=== PATIENT | female | born 1965 | race Caucasian/White ===

== ENCOUNTER → 2016-09-02 | Outpatient (CLI) | payer OTHER ==
[2016-05-04 18:34] VITALS: BP 147/54
[~2016-09-02] MED LIST: ACYC400T PO; AMOX500C PO; AMOX875T PO; BENZ100C PO; BUDE10.2 IH; CEPH500C PO; CETI10TA16 PO; DICY10CA53 PO; ESOM20CA PO; FLUT9.9S NS; GUAI5SYR PO; HYDR-2666 PO; HYDR-971 PO; LORA10TA68 PO; LOVA20TA2 PO; MONT10TA6 PO; PHEN-318 PO; PROM12.56 PO; XOPENEX HFA15 GM IH; ZOLP10TA PO; [UNRECOGNIZED DRUG - CODE] PO
[2016-09-02 11:31] LABS: BASO % 1 % (0-3); EOS % 4 % (0-3); HEMATOCRIT 40.2 % (36.0-47.0); HEMOGLOBIN 13.4 g/dL (12.0-15.5); LYMPH # 1.6 x10^3/uL (1.0-4.8); LYMPH % 24 % (24-48); MEAN CORPUSCULAR HEMOGLOBIN 28 pg (25-35); MEAN CORPUSCULAR HGB CONC 33 g/dL (31-37); MEAN CORPUSCULAR VOLUME 85 fL (79-100); MONO % 7 % (0-9); NEUT % 64 % (31-73); PLATELET COUNT 250 x10^3/uL (140-400); RED BLOOD COUNT 4.74 x10^6/uL (3.50-5.40); RED CELL DISTRIBUTION WIDTH 13.4 % (11.5-14.5); WHITE BLOOD COUNT 6.8 x10^3/uL (4.0-11.0)
[2016-09-02 11:50] LABS: ALBUMIN 3.7 g/dL (3.4-5.0); CALCIUM 9.2 mg/dL (8.5-10.1); CREATININE 0.8 mg/dL (0.6-1.0); GFR 76.2; POTASSIUM 3.9 mmol/L (3.5-5.1); TOTAL BILIRUBIN 0.4 mg/dL (0.2-1.0); TOTAL PROTEIN 7.5 g/dL (6.4-8.2)
[2016-09-02 11:56] LABS: CHOLESTEROL/HDL RATIO 3.4
== END | disposition home or self-care (01) ==
LOC: LAB 11:06
PROVIDERS: ATTEND Physician Assistant Medical
DX: Z13.1 Encounter for screening for diabetes mellitus (principal); E78.4 Other hyperlipidemia; E55.9 Vitamin D deficiency, unspecified; R42 Dizziness and giddiness
CPT/HCPCS: 36415; 80053; 80061; 82306; 85027

== ENCOUNTER → 2016-10-08 | Outpatient (CLI) | payer MEDICARE, OTHER ==
[2016-05-04 18:34] VITALS: BP 147/54
[~2016-10-08] MED LIST changes: +BUPIVACAINE MPF 0.25% 10 ML VIAL. ONE; +IOHEXOL 180 MG/ML 10 ML VIAL. ONE; +methylPREDNISolone ACETATE 40 MG/ML VIAL. ONE; +methylPREDNISolone ACETATE 80 MG/ML VIAL. ONE
--- NOTE | 2016-10-10 08:41 | PAIN ---
DATE OF SERVICE: 10/08/2016 DIAGNOSES: Low back pain with lumbar degenerative disk disease and lumbar spondylosis. HISTORY OF PRESENT ILLNESS: The patient is a 51-year-old female who returns for followup status post lumbar epidural steroid injection without significant improvement. Her pain seemed to be more axial in the low back and ____ today for lumbar facet joint injections, right side greater than the left. The patient reports still significant pain with the motion of the low back, especially extension and ____ on the right side with radiation to the right posterior gluteus, posterior lateral thigh and lateral anterior thigh. The patient reports she is wearing a knee brace on her left leg, which helps as well. She has been working and walking a little bit better, but still using a cane to ambulate. The patient reports it is worse with standing and progresses during the day anywhere from 7 to 10 on a scale of 10. Currently, it is 7 on exam today. The patient reports no new motor or sensory deficits, no new bowel or bladder incontinence or other complaints. PHYSICAL EXAMINATION: VITAL SIGNS: The patient's blood pressure 132/96, pulse 77, respirations 18, temperature 98.0 degrees Fahrenheit, weight is 195 pounds. GENERAL: The patient is awake, alert, oriented, appropriate, very pleasant demeanor. HEENT: Head shows normocephalic, atraumatic. Extraocular movements are intact, symmetrical. Oral cavity, mucous membranes are moist and pink. Dentition is intact. NECK: Shows anterior throat is supple without palpable lymphadenopathy noted. Swallow reflex is symmetrical. Neck shows full rotation and motion of cervical spine. CHEST: Shows normal on inspection. Breath sounds are clear to auscultation bilaterally. HEART: Shows S1 and S2 clear. ABDOMEN: Soft, nontender, nondistended. No palpable organomegaly noted. No rebound or guarding demonstrated. BACK: Shows spine grossly midline. Lumbar paraspinous muscle shows some moderate tenderness to palpation in the lower lumbar distribution only worse on the right than the left, but appears roughly symmetrical without atrophy, hypertrophy, no radiation of pain. Muscle girth is firm, but diffusely tender, more again in the right than the left without significant radiation. No tenderness over the sacrum or sacroiliac regions. The patient has good rotation and motion greater than 10 degrees right and left as well as extension greater than 10 degrees, forward flexion 45 degrees, pain reported with right lateral rotation and extension only though without radiation. EXTREMITIES: Lower extremities show deep tendon reflexes 2+ in the patellar tendons, 1+ tendo calcaneus tendons. Motor exam is strong with 5/5 dorsiflexion, extension, quadriceps and hamstring flexion. Peripheral pulses are 2+ in the posterior tibial distribution. Options were discussed with the patient. The patient's old chart was reviewed, as her current medication regimen updated. Current review of systems updated today as well and we will proceed with a right-sided L4-L5 and L5-S1 facet joint injections with fluoroscopic guidance. Risks were again discussed including, but not limited to bleeding, infection, possibility of epidural hematoma and subsequent neurologic compromise, dural puncture, headaches, spinal cord and/or nerve damage, side effects of steroid medications, exposure to fluoroscopy and poor results regarding pain control. The patient understands and wishes to proceed. The patient will return to clinic in approximately 3 weeks for followup. She was counseled on return appointment, activity level and side effects to be aware of. DIAGNOSES: Lumbar spondylosis with degenerative disk disease and low back pain. PROCEDURE: Right-sided L4-L5 and L5-S1 facet joint injections with fluoroscopic guidance under sterile prep and drape using local anesthetic. Medications injected is 60 mg of Depo-Medrol total plus 2 mL of 0.25% bupivacaine and 1 mL total of Isovue for contrast. CONDITION AT DISCHARGE: Stable. The patient tolerated the procedure well, had no complications. RAZA FERGUSON MD DR: SOFI/marquis JOB#: [id number] / [id number]
== END | disposition home or self-care (01) ==
LOC: PNCL 12:50
PROVIDERS: ATTEND Anesthesiology
DX: M47.817 Spondylosis without myelopathy or radiculopathy, lumbosacral region (principal); E78.00 Pure hypercholesterolemia, unspecified; I10 Essential (primary) hypertension; Z90.49 Acquired absence of other specified parts of digestive tract; N80.9 Endometriosis, unspecified; Z90.710 Acquired absence of both cervix and uterus; Z90.721 Acquired absence of ovaries, unilateral; M19.90 Unspecified osteoarthritis, unspecified site; F41.9 Anxiety disorder, unspecified; F32.9 Major depressive disorder, single episode, unspecified; F17.200 Nicotine dependence, unspecified, uncomplicated
CPT/HCPCS: 64493; 64494; J1030; J1040; J3490

== ENCOUNTER → 2016-10-23 | Outpatient (CLI) | payer MEDICARE, OTHER ==
[2016-05-04 18:34] VITALS: BP 147/54
[~2016-10-23] MED LIST changes: -methylPREDNISolone ACETATE 40 MG/ML VIAL. ONE
--- NOTE | 2016-10-24 11:25 | PAIN ---
DATE OF SERVICE: 10/23/2016 PROGRESS NOTE DIAGNOSES: Lumbar degenerative disk disease with low back pain and lumbar spondylosis. HISTORY OF PRESENT ILLNESS: This is a 51-year-old female, who returns for followup status post right-sided L4-L5 and L5-S1 facet joint injections. The patient reports near 100% improvement in the right side low back pain. Her chief complaint is low back is hurting on the lower aspect much more now that is not when noticeable at the right side is better. The patient reports that ____ 2-4 on a scale of 10, but still significantly painful with a catching sensation though achy and sharp sensations in the left low back, worse with rotational motion, especially extension of the lumbar spine. The patient reports no new motor or sensory deficits; however, no new bowel or bladder incontinence, feels much better with her right side. PHYSICAL EXAMINATION: VITAL SIGNS: Shows blood pressure 119/78, pulse 80, respirations 18, temperature 97.6 degrees Fahrenheit, weight is 192 pounds. GENERAL: The patient is awake, alert, oriented, appropriate, very pleasant demeanor. HEENT: Head shows normocephalic, atraumatic. Extraocular movements intact and symmetrical. The patient wears eyeglasses. Oral cavity, mucous membranes are moist and pink. Dentition is intact. NECK: Shows anterior throat supple. CHEST: Shows normal on inspection. Breath sounds are clear to auscultation bilaterally. HEART: Shows S1 and S2 clear. No murmurs auscultated. ABDOMEN: Soft, nontender, nondistended. No palpable organomegaly. No rebound or guarding demonstrated is normal in appearance. BACK: Shows spine grossly midline. Lumbar paraspinous muscle shows some moderate tenderness with palpation diffusely, more on the left than the right, but present bilaterally, much more significantly tender with left low lumbar paraspinous musculature to palpation. No tenderness over the spinous processes, sacrum or sacroiliac regions. The patient shows good rotation and motion of the lumbar spine, both laterally greater than 10 degrees with some minor pain reported with left lateral rotation greater than 10 degrees with significant pain with extension and left lateral rotation, but decreased with left forward flexion. EXTREMITIES: Lower extremities show deep tendon reflexes 2+ in the patellar tendons. Motor exam is strong with 5/5 dorsiflexion, extension and equal bilaterally. Options were discussed with the patient and the patient's old chart was reviewed as her current medication regimen updated. Current review of systems updated today as well. We will proceed with a left-sided L5-S1 facet joint injection with fluoroscopic guidance today. Risks were again discussed including, but not limited to bleeding, infection, possibility of intravascular injection sequelae, spread of local anesthetic and numbness, pneumothorax, side effects of steroid medication and poor results regarding pain control. The patient understands and wishes to proceed. The patient will return to clinic in approximately 2 weeks for followup, was counseled on return appointment, activity level, and side effects to be aware of. DIAGNOSES: Lumbar spondylosis with lumbar degenerative disk disease and low back pain. PROCEDURES: Left-sided L5-S1 facet joint injection with C-arm fluoroscopic guidance. Under sterile prep and drape using local anesthetic. Medication injected 80 mg of Depo-Medrol plus 1 mL of 0.25% bupivacaine and 0.5 mL of Isovue for contrast. CONDITION AT DISCHARGE: Stable. The patient tolerated the procedure well, had no complications. RAZA FERGUSON MD DR: SOFI/marquis JOB#: [id number] / [id number]
== END | disposition home or self-care (01) ==
LOC: PNCL 13:16
PROVIDERS: ATTEND Anesthesiology
DX: M51.36 Other intervertebral disc degeneration, lumbar region (principal); M47.816 Spondylosis without myelopathy or radiculopathy, lumbar region; I10 Essential (primary) hypertension; M19.90 Unspecified osteoarthritis, unspecified site; F41.9 Anxiety disorder, unspecified; F32.9 Major depressive disorder, single episode, unspecified; F17.200 Nicotine dependence, unspecified, uncomplicated; Z90.49 Acquired absence of other specified parts of digestive tract; Z90.710 Acquired absence of both cervix and uterus
CPT/HCPCS: 64493; J1040; J3490

== ENCOUNTER 2016-12-02 12:06 | Emergency (ER) | payer MEDICARE, OTHER ==
[~2016-12-02] VITALS: Ht 162.6 cm; Wt 87.5 kg
[~2016-12-02 12:06] MED LIST changes: -BUPIVACAINE MPF 0.25% 10 ML VIAL. ONE; -IOHEXOL 180 MG/ML 10 ML VIAL. ONE; -methylPREDNISolone ACETATE 80 MG/ML VIAL. ONE
[2016-12-02 12:23] VITALS: BP 120/76
[2016-12-02] MEDS ORDERED: ACETAMINOPHEN 325 MG TABLET. PO PRN (14:30)
[2016-12-02] MEDS ORDERED: LIDO:MAALOX:DONNATAL 1:1:1 15 ML SINGLE DOSE SWSW ONE (14:30)
[2016-12-02] MEDS ORDERED: FENTANYL PF 100 MCG/2 ML VIAL. IV ONE (14:30)
[2016-12-02] MEDS ORDERED: IV NORMAL SALINE 1000ML BAG 1,000 ML IV ONE (14:30)
[2016-12-02] MEDS ORDERED: NITROGLYCERIN SUBLINGUAL 0.4 MG BOTTLE OF 25. SL PRN (14:30)
--- NOTE | 2016-12-02 14:51 | RAD ---
Exam: PA and lateral chest radiograph History: Status post esophageal dilatation, rule out free air, trouble swallowing. Comparison: 08/15/2015. Findings: Cardiomediastinal silhouette is within normal limits for size. Bilateral lung lopez are free of focal infiltrate. No pleural effusion is seen. Cholecystectomy clips are present. No pneumomediastinum is identified. No pneumoperitoneum is seen. Impression: No acute cardiopulmonary process.
--- NOTE | 2016-12-02 15:11 | PHYS DOC ---
Past Medical History Past Medical History: Other Additional Past Medical Histor: LUMBAR DJD, RIGHT HIP PAIN,OSTEOARTHRITIS, BURSITIS,TROUBLE SWALLOWING Past Surgical History: Other Additional Past Surgical Histo: ENDOMETRIOSIS,EGD W/ DILATION Additional Information: 1 PACK CAN LAST ME A MONTH Alcohol Use: Occasionally Drug Use: None Adult General Chief Complaint Chief Complaint: GI PROBLEM HPI HPI Patient is a 51 year old female who presents with throat pain. Patient reports she had esophageal dilatation done yesterday by Dr. Martin at the [facility]. Since then she has been having pain on the back. She has been able to swallow fluids, but has enough pain that she is unable to eat any food. She has been able to swallow her meds. No fever. No chest pain. No other acute complaints. She says she called and spoke to the doctor who told her to go to the Emergency Department. Review of Systems Review of Systems Constitutional: Denies fever or chills Eyes: Denies change in visual acuity or eye pain HENT: Throat pain Respiratory: Denies cough or shortness of breath Cardiovascular: Denies chest pain GI: Denies abdominal pain, nausea, vomiting, bloody stools or diarrhea : Denies dysuria or hematuria Musculoskeletal: Denies back pain or joint pain Integument: Denies rash or skin lesions Neurologic: Denies headache, focal weakness or sensory changes Current Medications Current Medications Current Medications Medications (Trade) Dose Ordered Sig/Kurt Start Time Stop Time Status Last Admin Dose Admin Acetaminophen (Tylenol) 650 mg PRN Q4HRS PRN 12/02/16 14:30 12/03/16 14:29 UNV Fentanyl Citrate (Fentanyl 2ml Vial) 75 mcg 1X ONCE 12/02/16 15:30 12/02/16 15:31 DC 12/02/16 15:14 75 MCG Fentanyl Citrate 75 mcg 75 mcg 1X ONCE 12/02/16 14:30 12/02/16 15:09 DC Multi-Ingredient Mouthwash/Gargle (Gi Cocktail Single Dose) 15 ml 1X ONCE 12/02/16 14:30 12/02/16 14:31 DC 12/02/16 15:14 15 ML Nitroglycerin (Nitrostat) 0.4 mg PRN Q5MIN PRN 12/02/16 14:30 12/03/16 14:29 UNV Sodium Chloride (Iv Sodium Chloride 0.9% 1000ml Bag) 1,000 ml @ 1,000 mls/hr 1X ONCE 12/02/16 14:30 12/02/16 15:09 DC Allergies Allergies Allergies Coded Allergies Type Severity Reaction Last Updated Verified morphine Allergy Severe Anaphylaxis 08/17/15 Yes tramadol HCl Allergy Severe Anaphylaxis 08/17/15 Yes codeine Allergy Intermediate Unknown 08/17/15 Yes hydromorphone HCl Allergy Intermediate vomit 08/17/15 Yes epinephrine Adverse Reaction Intermediate Unknown 08/17/15 Yes lorazepam Adverse Reaction Intermediate nervousness 03/10/16 Yes metoclopramide HCl Adverse Reaction Intermediate vomit 08/17/15 Yes ondansetron HCl Adverse Reaction Intermediate Unknown 08/17/15 Yes Uncoded Allergies Type Severity Reaction Last Updated Verified compaz Adverse Reaction Intermediate nervousness 03/10/16 Physical Exam Physical Exam Constitutional: Well developed, well nourished, no acute distress, non-toxic appearance HENT: Normocephalic, atraumatic, bilateral external ears normal; oropharynx visually unremarkable without erythema, lesion, exudate; exterior neck unremarkable, no deformity or skin lesion, minimal anterior TTP Eyes: EOMI, conjunctiva normal, no discharge Neck: Normal range of motion, no stridor Cardiovascular: Heart rate normal, regular rhythm, no murmur Lungs & Thorax: Bilateral breath sounds clear to auscultation Abdomen: Bowel sounds normal, soft, non-distended, no TTP Skin: Warm, dry, no erythema, no rash Extremities: No obvious deformity, no edema Neurologic: Alert and oriented X 3, no gross deficits noted Current Patient Data Vital Signs Vital Signs Date Time Temp Pulse Resp B/P Pulse Ox O2 Delivery O2 Flow Rate FiO2 12/02/16 15:14 18 12/02/16 12:23 98.6 77 120/76 97 Room Air 98.6 EKG EKG [] Radiology/Procedures Radiology/Procedures CXR: Impression: No acute cardiopulmonary process. Course & Med Decision Making Course & Med Decision Making Pertinent Labs and Imaging studies reviewed. (See chart for details) Patient is 51 year old female who presents with throat pain s/p esophageal dilatation yesterday. No concerning findings on physical exam, low suspicion for serious complication such as esophageal perforation. I spoke with Dr. Martin after seeing patient: will obtain CXR (to look for free air), give IV fluid bolus, and give GI cocktail. If CXR normal then ok to discharge home. Pain medication also ordered. Imaging results as above. Discussed results with patient. Nursing staff unable to obtain IV on first attempt; patient asks not to be stuck again so will change pain meds to IM with patient in agreement. Will discharge with instructions for follow up and return precautions. Dragon Disclaimer Dragon Disclaimer This electronic medical record was generated, in whole or in part, using a voice recognition dictation system. Departure Departure Impression: Primary Impression: Sore throat Additional Impression: Esophageal dilatation Disposition: 01 HOME, SELF-CARE Condition: STABLE Referrals: HENRY MORA PA-C (PCP) BLANCHE MARTIN MD Patient Instructions: Esophageal Dilatation Additional Instructions: Thank you for allowing us to provide care today in the Emergency Department. Continue to take her home pain medication. You may also try some Chloraseptic spray. Follow the directions on the label. Schedule a follow up appointment with your GI doctor. Return promptly to the Emergency Department if you develop any new or concerning symptoms. Problem Qualifiers BRICE MARTINES MD Dec 02, 2016 15:11
[2016-12-02] MEDS ORDERED: FENTANYL PF 100 MCG/2 ML VIAL. IM ONE (15:30)
== END 2016-12-02 15:25 | disposition home or self-care (01) ==
LOC: ER 12:06
DX: J02.9 Acute pharyngitis, unspecified (principal); K22.8 Other specified diseases of esophagus; M19.90 Unspecified osteoarthritis, unspecified site; F17.200 Nicotine dependence, unspecified, uncomplicated; Z88.6 Allergy status to analgesic agent; Z88.5 Allergy status to narcotic agent; Z88.8 Allergy status to other drugs, medicaments and biological substances
CPT/HCPCS: 71020; 96372; 99284; J3010

== ENCOUNTER 2017-05-30 16:37 | Inpatient (IN) | payer MEDICARE, OTHER ==
[~2017-05-30] VITALS: Ht 162.6 cm; Wt 89.8 kg
[~2017-05-30 16:37] MED LIST changes: -HYDR-2666 PO; +HYDR-2758 PO
--- NOTE | 2017-05-30 17:33 | PHYS DOC ---
Past Medical History Past Medical History: Other Additional Past Medical Histor: LUMBAR DJD, RIGHT HIP PAIN,OSTEOARTHRITIS, BURSITIS,TROUBLE SWALLOWING Past Surgical History: Other Additional Past Surgical Histo: ENDOMETRIOSIS,EGD W/ DILATION Additional Information: NOSMOKING FOR ONE MONTH NOW Alcohol Use: Occasionally Drug Use: None Adult General Chief Complaint Chief Complaint: Palpitations HPI HPI Patient is a 51 year old female who presents with is. She states it started last night is been constant in nature. She denies any nauseous, shortness of breath fevers chills or chest pain. She states nothing makes it better or worse. She states it just makes her feel extremely tired. She states she's had a stress test that was completely normal by Dr. Stevens approximately 2 years ago. She states she is a former drug abuser and a week ago she used a line of Coke after being pressured by her brother. Review of Systems Review of Systems Constitutional: Denies fever or chills [] Eyes: Denies change in visual acuity, redness, or eye pain [] HENT: Denies nasal congestion or sore throat [] Respiratory: Denies cough or shortness of breath [] Cardiovascular: No additional information not addressed in HPI [] GI: Denies abdominal pain, nausea, vomiting, bloody stools or diarrhea [] : Denies dysuria or hematuria [] Musculoskeletal: Denies back pain or joint pain [] Integument: Denies rash or skin lesions [] Neurologic: Denies headache, focal weakness or sensory changes [] Endocrine: Denies polyuria or polydipsia [] Current Medications Current Medications Current Medications Medications (Trade) Dose Ordered Sig/Kurt Start Time Stop Time Status Last Admin Dose Admin Fentanyl Citrate (Fentanyl 2ml Vial) 50 mcg PRN Q15MIN PRN 05/30/17 18:45 05/31/17 18:44 05/30/17 19:46 50 MCG Allergies Allergies Allergies Coded Allergies Type Severity Reaction Last Updated Verified morphine Allergy Severe Anaphylaxis 08/17/15 Yes tramadol HCl Allergy Severe Anaphylaxis 08/17/15 Yes codeine Allergy Intermediate Unknown 08/17/15 Yes hydromorphone HCl Allergy Intermediate vomit 08/17/15 Yes epinephrine Adverse Reaction Intermediate Unknown 08/17/15 Yes lorazepam Adverse Reaction Intermediate nervousness 03/10/16 Yes metoclopramide HCl Adverse Reaction Intermediate vomit 08/17/15 Yes ondansetron HCl Adverse Reaction Intermediate Unknown 08/17/15 Yes prochlorperazine Adverse Reaction Intermediate NERVOUS 05/30/17 No Physical Exam Physical Exam Constitutional: Well developed, well nourished, no acute distress, non-toxic appearance. [] HENT: Normocephalic, atraumatic, bilateral external ears normal, oropharynx moist, no oral exudates, nose normal. [] Eyes: PERRLA, EOMI, conjunctiva normal, no discharge. [] Neck: Normal range of motion, no tenderness, supple, no stridor. [] Cardiovascular:Heart rate regular rhythm, no murmur [] Lungs & Thorax: Bilateral breath sounds clear to auscultation [] Abdomen: Bowel sounds normal, soft, no tenderness, no masses, no pulsatile masses. [] Skin: Warm, dry, no erythema, no rash. [] Back: No tenderness, no CVA tenderness. [] Extremities: No tenderness, no cyanosis, no clubbing, ROM intact, no edema. [] Neurologic: Alert and oriented X 3, normal motor function, normal sensory function, no focal deficits noted. [] Psychologic: Affect normal, judgement normal, mood normal. [] Current Patient Data Vital Signs Vital Signs Date Time Temp Pulse Resp B/P (MAP) Pulse Ox O2 Delivery O2 Flow Rate FiO2 05/30/17 18:43 76 18 157/85 (109) 98 Room Air 05/30/17 16:54 97.4 97.4 Lab Values Laboratory Tests Test 05/30/17 17:15 05/30/17 17:40 05/30/17 17:42 Sodium Level 138 mmol/L (136-145) Potassium Level 3.8 mmol/L (3.5-5.1) Chloride Level 103 mmol/L (98-107) Carbon Dioxide Level 27 mmol/L (21-32) Anion Gap 8 (6-14) Blood Urea Nitrogen 13 mg/dL (7-20) Creatinine 0.7 mg/dL (0.6-1.0) Estimated GFR (Cockcroft-Gault) 88.9 Glucose Level 99 mg/dL (70-99) Calcium Level 8.9 mg/dL (8.5-10.1) Magnesium Level 2.4 mg/dL (1.8-2.4) Total Bilirubin 0.5 mg/dL (0.2-1.0) Direct Bilirubin 0.1 mg/dL (0.0-0.2) Aspartate Amino Transferase (AST) 24 U/L (15-37) Alanine Aminotransferase (ALT) 42 U/L (14-59) Alkaline Phosphatase 90 U/L (46-116) Creatine Kinase 107 U/L (26-192) Creatine Kinase MB (Mass) 0.8 ng/mL (0.0-3.6) Creatine Kinase MB Relative Index 0.7 % (0-4) Troponin I Quantitative < 0.017 ng/mL (0.000-0.055) SM-Xoq-M-Type Natriuretic Peptide 72 pg/mL (0-124) Total Protein 7.7 g/dL (6.4-8.2) Albumin 3.7 g/dL (3.4-5.0) Lipase 141 U/L (73-393) Thyroid Stimulating Hormone (TSH) 1.523 uIU/mL (0.358-3.74) Serum Test, Qualitative Negative (NEG) White Blood Count 13.1 x10^3/uL (4.0-11.0) H Red Blood Count 4.47 x10^6/uL (3.50-5.40) Hemoglobin 12.6 g/dL (12.0-15.5) Hematocrit 38.5 % (36.0-47.0) Mean Corpuscular Volume 86 fL (79-100) Mean Corpuscular Hemoglobin 28 pg (25-35) Mean Corpuscular Hemoglobin Concent 33 g/dL (31-37) Red Cell Distribution Width 14.6 % (11.5-14.5) H Platelet Count 286 x10^3/uL (140-400) Neutrophils (%) (Auto) 78 % (31-73) H Lymphocytes (%) (Auto) 14 % (24-48) L Monocytes (%) (Auto) 6 % (0-9) Eosinophils (%) (Auto) 2 % (0-3) Basophils (%) (Auto) 1 % (0-3) Neutrophils # (Auto) 10.2 x10^3uL (1.8-7.7) H Lymphocytes # (Auto) 1.8 x10^3/uL (1.0-4.8) Monocytes # (Auto) 0.8 x10^3/uL (0.0-1.1) Eosinophils # (Auto) 0.2 x10^3/uL (0.0-0.7) Basophils # (Auto) 0.1 x10^3/uL (0.0-0.2) Prothrombin Time 13.2 SEC (11.7-14.0) Prothrombin Time INR 1.1 (0.8-1.1) Urine Collection Type Unknown Urine Color Yellow Urine Clarity Clear Urine pH 5.5 Urine Specific [place] >=1.030 Urine Protein Negative mg/dL (NEG-TRACE) Urine Glucose (UA) Negative mg/dL (NEG) Urine Ketones (Stick) Negative mg/dL (NEG) Urine Blood Negative (NEG) Urine Nitrite Negative (NEG) Urine Bilirubin Negative (NEG) Urine Urobilinogen Dipstick 0.2 mg/dL (0.2 mg/dL) Urine Leukocyte Esterase Negative (NEG) Urine RBC 0 /HPF (0-2) Urine WBC 0 /HPF (0-4) Urine Bacteria 0 /HPF (0-FEW) Urine Mucus Mod /LPF Urine Opiates Screen Pos (NEG) Urine Methadone Screen Neg (NEG) Urine Barbiturates Neg (NEG) Urine Phencyclidine Screen Neg (NEG) Urine Amphetamine/Methamphetamine Neg (NEG) Urine Benzodiazepines Screen Neg (NEG) Urine Cocaine Screen Pos (NEG) Urine Cannabinoids Screen Neg (NEG) Urine Ethyl Alcohol Neg (NEG) Laboratory Tests 05/30/17 17:40 Laboratory Tests 05/30/17 17:15 EKG EKG EKG shows sinus rhythm with rate of [address] elevations, T-wave inversion in lead 3, incomplete right bundle branch morphology noted, normal axis, QTC 446 pulsatile sinus, as interpreted by me. Radiology/Procedures Radiology/Procedures One view chest x-ray did not show any focal salt elevations, bony abnormalities , or pneumothorax, as interpreted by me. Impressions: Palpitations Chronic pain Cocaine abuse Course & Med Decision Making Course & Med Decision Making Pertinent Labs and Imaging studies reviewed. (See chart for details) Labs show any acute abnormalities. She is having PVCs on the monitor which are symptomatic in nature. Spoke with Dr. Stevens for consultation and admitting the patient to her primary Dr. Whitney. Patient's in stable condition at this time. Dragon Disclaimer Dragon Disclaimer This electronic medical record was generated, in whole or in part, using a voice recognition dictation system. Departure Departure Impression: Primary Impression: Palpitations Disposition: ADMITTED INPATIENT Admitting Physician: Mark Francis Condition: STABLE Referrals: HENRY MORA PA-C (PCP) SONIA OWENS MD May 30, 2017 17:33
--- NOTE | 2017-05-30 17:34 | EKG ---
[facility] [address] [place] [address] Test Date: 2017-05-30 Test Time: 16:44:55 Pat Name: FRENCH ORTEGA Department: Room: Gender: F Materials Clerk: : 1965 Requested By: SONIA OWENS Order Number: [id number] Reading MD: Yosvany Valerio Measurements Intervals [place] Rate: 79 P: 24 ID: [id number] QRS: 1 QRSD: 94 T: 17 QT: 388 QTc: 446 Interpretive Statements SINUS RHYTHM INCOMPLETE RIGHT BUNDLE BRANCH BLOCK NONSPECIFIC ST-T WAVE CHANGES. RI6.01 Unconfirmed report Compared to ECG 04/08/2016 09:01:47 Incomplete right bundle-branch block now present Electronically Signed On 06-17-2017 13:21:44 CDT by Yosvany Valerio
[2017-05-30 17:50] LABS: BILIRUBIN,URINE NEGATIVE (NEG); GLUCOSE,URINE NEGATIVE (NEG); NITRITE,URINE NEGATIVE (NEG); PH,URINE 5.5; PROTEIN,URINE NEGATIVE (NEG-TRACE); UROBILINOGEN,URINE 0.2 mg/dL (0.2 mg/dL)
[2017-05-30 17:56] LABS: BARBITURATES NEG (NEG); BENZODIAZEPINES NEG (NEG); CANNABINOIDS NEG (NEG); COCAINE POS (NEG); METHADONE NEG (NEG); OPIATES POS (NEG); PHENCYCLIDINE NEG (NEG)
[2017-05-30 18:14] LABS: BACTERIA,URINE 0 /HPF (0-FEW); RBC,URINE 0 /HPF (0-2); WBC,URINE 0 /HPF (0-4)
[2017-05-30 18:19] LABS: BASO # 0.1 x10^3/uL (0.0-0.2); BASO % 1 % (0-3); EOS % 2 % (0-3); HEMATOCRIT 38.5 % (36.0-47.0); HEMOGLOBIN 12.6 g/dL (12.0-15.5); LYMPH # 1.8 x10^3/uL (1.0-4.8); LYMPH % 14 % (24-48); MEAN CORPUSCULAR HEMOGLOBIN 28 pg (25-35); MEAN CORPUSCULAR HGB CONC 33 g/dL (31-37); MEAN CORPUSCULAR VOLUME 86 fL (79-100); MONO % 6 % (0-9); NEUT % 78 % (31-73); PLATELET COUNT 286 x10^3/uL (140-400); RED BLOOD COUNT 4.47 x10^6/uL (3.50-5.40); RED CELL DISTRIBUTION WIDTH 14.6 % (11.5-14.5); WHITE BLOOD COUNT 13.1 x10^3/uL (4.0-11.0)
[2017-05-30 18:31] LABS: INR 1.1 (0.8-1.1); PROTHROMBIN TIME PATIENT 13.2 SEC (11.7-14.0)
[2017-05-30] MEDS: fentaNYL PF VIAL 100 MCG/2 ML VIAL IV PRN ×3 (19:06→21:38)
[2017-05-30] MEDS ORDERED: PROMETHAZINE 25 MG in IV NORMAL SALINE 50ML 50 ML IV ONE (19:30)
[2017-05-30 19:44] LABS: CALCIUM 8.9 mg/dL (8.5-10.1); CREATININE 0.7 mg/dL (0.6-1.0); GFR 88.9; POTASSIUM 3.8 mmol/L (3.5-5.1)
[2017-05-30 19:47] LABS: ALBUMIN 3.7 g/dL (3.4-5.0); DIRECT BILIRUBIN 0.1 mg/dL (0.0-0.2); MAGNESIUM 2.4 mg/dL (1.8-2.4); TOTAL BILIRUBIN 0.5 mg/dL (0.2-1.0); TOTAL PROTEIN 7.7 g/dL (6.4-8.2)
[2017-05-30 19:51] LABS: NEG OBC SER NEG; POS OBC SER POS
[2017-05-30 19:54] LABS: CKMB MASS 0.8 ng/mL (0.0-3.6)
[2017-05-30] MEDS ORDERED: fentaNYL PF VIAL 100 MCG/2 ML VIAL IV PRN (20:00)
[2017-05-30 20:22] VITALS: BP 138/76
[2017-05-30] MEDS ORDERED: VALA500T PO (20:31)
[2017-05-30] MEDS ORDERED: MONT10TA9 PO (20:34)
[2017-05-30] MEDS ORDERED: DICY10CA3 PO (20:34)
[2017-05-30] MEDS ORDERED: ESOM40CA47 PO (20:34)
[2017-05-30] MEDS ORDERED: PROM12.56 (20:34)
[2017-05-30] MEDS ORDERED: LOSA25TA4 PO (20:34)
[2017-05-30] MEDS ORDERED: OLOP2.5D5 OU (20:34)
[2017-05-30] MEDS ORDERED: FLUT16SP NS (20:34)
[2017-05-30 23:11] VITALS: BP 113/63
[2017-05-31] MEDS: fentaNYL PF VIAL 100 MCG/2 ML VIAL IV PRN ×3 (01:22→07:57)
[2017-05-31 03:10] VITALS: BP 105/59
[2017-05-31 04:56] LABS: BASO % 1 % (0-3); EOS % 2 % (0-3); HEMATOCRIT 36.4 % (36.0-47.0); HEMOGLOBIN 12.6 g/dL (12.0-15.5); LYMPH # 1.9 x10^3/uL (1.0-4.8); LYMPH % 20 % (24-48); MEAN CORPUSCULAR HEMOGLOBIN 29 pg (25-35); MEAN CORPUSCULAR HGB CONC 35 g/dL (31-37); MEAN CORPUSCULAR VOLUME 85 fL (79-100); MONO % 8 % (0-9); NEUT % 70 % (31-73); PLATELET COUNT 261 x10^3/uL (140-400); RED BLOOD COUNT 4.31 x10^6/uL (3.50-5.40); RED CELL DISTRIBUTION WIDTH 14.3 % (11.5-14.5); WHITE BLOOD COUNT 9.3 x10^3/uL (4.0-11.0)
[2017-05-31 05:03] LABS: CALCIUM 8.8 mg/dL (8.5-10.1); CREATININE 0.7 mg/dL (0.6-1.0); GFR 88.9
[2017-05-31 05:12] LABS: POTASSIUM 4.5 mmol/L (3.5-5.1)
[2017-05-31 07:00] VITALS: BP 124/69
[2017-05-31] MEDS ORDERED: DICYCLOMINE HCL 10 MG CAPSULE PO PRN (08:15)
[2017-05-31] MEDS: MONTELUKAST SODIUM 10 MG TABLET. PO SCH (08:45)
[2017-05-31] MEDS: valACYclovir 500 MG TABLET. PO SCH (08:45)
[2017-05-31] MEDS: CETIRIZINE HCL 10 MG TABLET. PO SCH (08:45)
[2017-05-31] MEDS: PANTOPRAZOLE 40 MG TABLET.DR. PO SCH ×2 (08:46→16:56)
--- NOTE | 2017-05-31 08:47 | RAD ---
Portable AP chest. History: Palpitations, irregular heartbeat AP view was taken of the chest. Lungs are clear. Heart is normal in size. There is no pleural effusion. Impression: 1. No acute chest disease.
[2017-05-31] MEDS ORDERED: LOSARTAN POTASSIUM 25 MG TABLET. PO SCH (09:00)
[2017-05-31] MEDS: KETOTIFEN FUMARATE 0.025% OPHTH SOLUTION BOTTLE. OU SCH (10:57)
[2017-05-31] MEDS: FLUTICASONE 50MCG/NASAL SPRAY 16GM BOTTLE. NS SCH (10:57)
[2017-05-31 11:00] VITALS: BP 117/65
--- NOTE | 2017-05-31 11:53 | PDOC ---
Provider Note Provider Note Consult dictated Symptomatic PVCs Probably due to cocaine abuse Obtain echocardiogram tomorrow to evaluate left ventricular function Refuses an MPI Consider anxiolytics for symptomatic PVCs. APOLLO JARA MD May 31, 2017 11:53
--- NOTE | 2017-05-31 14:16 | PDOC1 ---
History and Physical Date of Admission Date of Admission 05/30/17 Identification/Chief Complaint Chief Complaint palpitation Problems: Source Source: Patient History of Present Illness History of Present Illness Patient is a 51 year old female who presents with palpitation and dizziness. She states it started last night is been constant in nature. She denies any nauseous, shortness of breath fevers chills or chest pain. She states nothing makes it better or worse. She states it just makes her feel extremely tired . She states she's had a stress test that was completely normal by Dr. Stevens approximately 2 years ago. She states she is a former drug abuser and recently she used a line of Coke after being pressured by her brother. she takes hydrocodone for chronic back pain Past Medical History Cardiovascular: HTN, Hyperlipidemia, Other (palpitation) Pulmonary: Other (smoker ) CENTRAL NERVOUS SYSTEM: Other GI: GERD, GI bleed, Irritable bowel disease, Other (esophgeal stenisis and dilation, gastritis, esophagitis) Heme/Onc: No pertinent hx Hepatobiliary: No pertinent hx Psych: Anxiety, Depression Rheumatologic: Fibromyalgia, Other (DJD and low back pain) Infectious disease: No pertinent hx ENT: Allergic Rhinitis Renal/: UTI Endocrine: No pertinent hx, Other Dermatology: No pertinent hx Past Surgical History Past Surgical History: Cholecystectomy, Hysterectomy Family History Family History: Coronary Artery Disease, Hypertension Social History Smoke: 1 pack per day ALCOHOL: rare Drugs: Cocaine, Other (quit but tried again recently) Current Medications Current Medications Current Medications Medications (Trade) Dose Ordered Sig/Kurt Start Time Stop Time Status Last Admin Dose Admin Cetirizine HCl (ZyrTEC) 10 mg DAILY 05/31/17 09:00 05/31/17 08:45 10 MG Dicyclomine HCl (Bentyl) 10 mg PRN DAILY PRN 05/31/17 08:15 Fentanyl Citrate (Fentanyl 2ml Vial) 50 mcg PRN Q2HR PRN 05/30/17 20:00 05/31/17 19:59 05/31/17 10:57 50 MCG Fluticasone Propionate (Flonase) 2 spray DAILY 05/31/17 09:00 05/31/17 10:57 2 SPRAY Ketotifen Fumarate (Zaditor) 1 drop DAILY 05/31/17 09:00 05/31/17 10:57 1 DROP Losartan Potassium (Cozaar) 25 mg DAILY 05/31/17 09:00 05/31/17 12:09 DC 05/31/17 08:46 25 MG Metoprolol Tartrate (Lopressor) 12.5 mg [id number] 05/31/17 18:00 Montelukast Sodium (Singulair) 10 mg DAILY 05/31/17 09:00 05/31/17 08:45 10 MG Pantoprazole Sodium (Protonix) 40 mg BIDAC 05/31/17 09:00 05/31/17 08:46 40 MG Promethazine HCl 25 mg/Sodium Chloride 51 ml @ 101 mls/hr 1X ONCE 05/30/17 19:30 05/30/17 20:00 DC 05/30/17 19:47 101 MLS/HR Valacyclovir HCl (Valtrex) 500 mg DAILY 05/31/17 09:00 05/31/17 08:45 500 MG Allergies Allergies Allergies Coded Allergies Type Severity Reaction Last Updated Verified morphine Allergy Severe Anaphylaxis 08/17/15 Yes tramadol HCl Allergy Severe Anaphylaxis 08/17/15 Yes codeine Allergy Intermediate Unknown 08/17/15 Yes hydromorphone HCl Allergy Intermediate vomit 08/17/15 Yes epinephrine Adverse Reaction Intermediate Unknown 08/17/15 Yes lorazepam Adverse Reaction Intermediate nervousness 03/10/16 Yes metoclopramide HCl Adverse Reaction Intermediate vomit 08/17/15 Yes ondansetron HCl Adverse Reaction Intermediate Unknown 08/17/15 Yes prochlorperazine Adverse Reaction Intermediate NERVOUS 05/30/17 No ROS Review of System CONSTITUTIONAL: No fever or chills EYES: No recent changes SKIN: No rash or itching CARDIOVASCULAR: No chest pain, + palpitations and feels dizzy RESPIRATORY: No SOB or cough GASTROINTESTINAL: + nausea,No vomiting or abdominal pain NEUROLOGICAL: mild headaches and weakness in general ENDOCRINE: No cold or heat intolerance GENITOURINARY: No urgency or frequency of urination MUSCULOSKELETAL: chronic back pain and joint pain LYMPHATICS: No enlarged lymph nodes PSYCHIATRIC: + anxiety and depression Physical Exam Physical Exam GEN.: No apparent distress. Alert and oriented. HEENT: Head is normocephalic, atraumatic NECK: Supple. LUNGS: Clear to auscultation. HEART: RRR, S1, S2 present. Peripheral pulses intact ABDOMEN: Soft, nontender. Positive bowel sounds. EXTREMITIES: Without any cyanosis. NEUROLOGIC: Normal speech, normal tone PSYCHIATRIC: Normal affect, SKIN: No ulcerations Vitals Vitals Vital Signs Date Time Temp Pulse Resp B/P (MAP) Pulse Ox O2 Delivery O2 Flow Rate FiO2 05/31/17 08:46 77 105/59 05/31/17 08:00 Room Air 05/31/17 07:00 98.6 20 97 98.6 Labs Labs Laboratory Tests Test 05/30/17 17:15 05/30/17 17:40 05/30/17 17:42 05/31/17 03:50 Sodium Level 138 mmol/L (136-145) 139 mmol/L (136-145) Potassium Level 3.8 mmol/L (3.5-5.1) 4.5 mmol/L (3.5-5.1) Chloride Level 103 mmol/L (98-107) 105 mmol/L (98-107) Carbon Dioxide Level 27 mmol/L (21-32) 28 mmol/L (21-32) Anion Gap 8 (6-14) 6 (6-14) Blood Urea Nitrogen 13 mg/dL (7-20) 18 mg/dL (7-20) Creatinine 0.7 mg/dL (0.6-1.0) 0.7 mg/dL (0.6-1.0) Estimated GFR (Cockcroft-Gault) 88.9 88.9 Glucose Level 99 mg/dL (70-99) 93 mg/dL (70-99) Calcium Level 8.9 mg/dL (8.5-10.1) 8.8 mg/dL (8.5-10.1) Magnesium Level 2.4 mg/dL (1.8-2.4) Total Bilirubin 0.5 mg/dL (0.2-1.0) Direct Bilirubin 0.1 mg/dL (0.0-0.2) Aspartate Amino Transf (AST/SGOT) 24 U/L (15-37) Alanine Aminotransferase (ALT/SGPT) 42 U/L (14-59) Alkaline Phosphatase 90 U/L (46-116) Creatine Kinase 107 U/L (26-192) Creatine Kinase MB (Mass) 0.8 ng/mL (0.0-3.6) Creatine Kinase MB Relative Index 0.7 % (0-4) Troponin I Quantitative < 0.017 ng/mL (0.000-0.055) < 0.017 ng/mL (0.000-0.055) KI-Ozf-C-Type Natriuretic Peptide 72 pg/mL (0-124) Total Protein 7.7 g/dL (6.4-8.2) Albumin 3.7 g/dL (3.4-5.0) Lipase 141 U/L (73-393) Thyroid Stimulating Hormone (TSH) 1.523 uIU/mL (0.358-3.74) Serum Test, Qualitative Negative (NEG) White Blood Count 13.1 x10^3/uL (4.0-11.0) 9.3 x10^3/uL (4.0-11.0) Red Blood Count 4.47 x10^6/uL (3.50-5.40) 4.31 x10^6/uL (3.50-5.40) Hemoglobin 12.6 g/dL (12.0-15.5) 12.6 g/dL (12.0-15.5) Hematocrit 38.5 % (36.0-47.0) 36.4 % (36.0-47.0) Mean Corpuscular Volume 86 fL (79-100) 85 fL (79-100) Mean Corpuscular Hemoglobin 28 pg (25-35) 29 pg (25-35) Mean Corpuscular Hemoglobin Concent 33 g/dL (31-37) 35 g/dL (31-37) Red Cell Distribution Width 14.6 % (11.5-14.5) 14.3 % (11.5-14.5) Platelet Count 286 x10^3/uL (140-400) 261 x10^3/uL (140-400) Neutrophils (%) (Auto) 78 % (31-73) 70 % (31-73) Lymphocytes (%) (Auto) 14 % (24-48) 20 % (24-48) Monocytes (%) (Auto) 6 % (0-9) 8 % (0-9) Eosinophils (%) (Auto) 2 % (0-3) 2 % (0-3) Basophils (%) (Auto) 1 % (0-3) 1 % (0-3) Neutrophils # (Auto) 10.2 x10^3uL (1.8-7.7) 6.4 x10^3uL (1.8-7.7) Lymphocytes # (Auto) 1.8 x10^3/uL (1.0-4.8) 1.9 x10^3/uL (1.0-4.8) Monocytes # (Auto) 0.8 x10^3/uL (0.0-1.1) 0.7 x10^3/uL (0.0-1.1) Eosinophils # (Auto) 0.2 x10^3/uL (0.0-0.7) 0.2 x10^3/uL (0.0-0.7) Basophils # (Auto) 0.1 x10^3/uL (0.0-0.2) 0.0 x10^3/uL (0.0-0.2) Prothrombin Time 13.2 SEC (11.7-14.0) Prothromb Time International Ratio 1.1 (0.8-1.1) Urine Collection Type Unknown Urine Color Yellow Urine Clarity Clear Urine pH 5.5 Urine Specific [place] >=1.030 Urine Protein Negative mg/dL (NEG-TRACE) Urine Glucose (UA) Negative mg/dL (NEG) Urine Ketones (Stick) Negative mg/dL (NEG) Urine Blood Negative (NEG) Urine Nitrite Negative (NEG) Urine Bilirubin Negative (NEG) Urine Urobilinogen Dipstick 0.2 mg/dL (0.2 mg/dL) Urine Leukocyte Esterase Negative (NEG) Urine RBC 0 /HPF (0-2) Urine WBC 0 /HPF (0-4) Urine Bacteria 0 /HPF (0-FEW) Urine Mucus Mod /LPF Urine Opiates Screen Pos (NEG) Urine Methadone Screen Neg (NEG) Urine Barbiturates Neg (NEG) Urine Phencyclidine Screen Neg (NEG) Urine Amphetamine/Methamphetamine Neg (NEG) Urine Benzodiazepines Screen Neg (NEG) Urine Cocaine Screen Pos (NEG) Urine Cannabinoids Screen Neg (NEG) Urine Ethyl Alcohol Neg (NEG) Test 05/31/17 07:55 Troponin I Quantitative < 0.017 ng/mL (0.000-0.055) Laboratory Tests Test 05/30/17 17:15 05/30/17 17:40 05/30/17 17:42 05/31/17 03:50 Sodium Level 138 mmol/L (136-145) 139 mmol/L (136-145) Potassium Level 3.8 mmol/L (3.5-5.1) 4.5 mmol/L (3.5-5.1) Chloride Level 103 mmol/L (98-107) 105 mmol/L (98-107) Carbon Dioxide Level 27 mmol/L (21-32) 28 mmol/L (21-32) Anion Gap 8 (6-14) 6 (6-14) Blood Urea Nitrogen 13 mg/dL (7-20) 18 mg/dL (7-20) Creatinine 0.7 mg/dL (0.6-1.0) 0.7 mg/dL (0.6-1.0) Estimated GFR (Cockcroft-Gault) 88.9 88.9 Glucose Level 99 mg/dL (70-99) 93 mg/dL (70-99) Calcium Level 8.9 mg/dL (8.5-10.1) 8.8 mg/dL (8.5-10.1) Magnesium Level 2.4 mg/dL (1.8-2.4) Total Bilirubin 0.5 mg/dL (0.2-1.0) Direct Bilirubin 0.1 mg/dL (0.0-0.2) Aspartate Amino Transf (AST/SGOT) 24 U/L (15-37) Alanine Aminotransferase (ALT/SGPT) 42 U/L (14-59) Alkaline Phosphatase 90 U/L (46-116) Creatine Kinase 107 U/L (26-192) Creatine Kinase MB (Mass) 0.8 ng/mL (0.0-3.6) Creatine Kinase MB Relative Index 0.7 % (0-4) Troponin I Quantitative < 0.017 ng/mL (0.000-0.055) < 0.017 ng/mL (0.000-0.055) XB-Wra-J-Type Natriuretic Peptide 72 pg/mL (0-124) Total Protein 7.7 g/dL (6.4-8.2) Albumin 3.7 g/dL (3.4-5.0) Lipase 141 U/L (73-393) Thyroid Stimulating Hormone (TSH) 1.523 uIU/mL (0.358-3.74) Serum Test, Qualitative Negative (NEG) White Blood Count 13.1 x10^3/uL (4.0-11.0) 9.3 x10^3/uL (4.0-11.0) Red Blood Count 4.47 x10^6/uL (3.50-5.40) 4.31 x10^6/uL (3.50-5.40) Hemoglobin 12.6 g/dL (12.0-15.5) 12.6 g/dL (12.0-15.5) Hematocrit 38.5 % (36.0-47.0) 36.4 % (36.0-47.0) Mean Corpuscular Volume 86 fL (79-100) 85 fL (79-100) Mean Corpuscular Hemoglobin 28 pg (25-35) 29 pg (25-35) Mean Corpuscular Hemoglobin Concent 33 g/dL (31-37) 35 g/dL (31-37) Red Cell Distribution Width 14.6 % (11.5-14.5) 14.3 % (11.5-14.5) Platelet Count 286 x10^3/uL (140-400) 261 x10^3/uL (140-400) Neutrophils (%) (Auto) 78 % (31-73) 70 % (31-73) Lymphocytes (%) (Auto) 14 % (24-48) 20 % (24-48) Monocytes (%) (Auto) 6 % (0-9) 8 % (0-9) Eosinophils (%) (Auto) 2 % (0-3) 2 % (0-3) Basophils (%) (Auto) 1 % (0-3) 1 % (0-3) Neutrophils # (Auto) 10.2 x10^3uL (1.8-7.7) 6.4 x10^3uL (1.8-7.7) Lymphocytes # (Auto) 1.8 x10^3/uL (1.0-4.8) 1.9 x10^3/uL (1.0-4.8) Monocytes # (Auto) 0.8 x10^3/uL (0.0-1.1) 0.7 x10^3/uL (0.0-1.1) Eosinophils # (Auto) 0.2 x10^3/uL (0.0-0.7) 0.2 x10^3/uL (0.0-0.7) Basophils # (Auto) 0.1 x10^3/uL (0.0-0.2) 0.0 x10^3/uL (0.0-0.2) Prothrombin Time 13.2 SEC (11.7-14.0) Prothromb Time International Ratio 1.1 (0.8-1.1) Urine Collection Type Unknown Urine Color Yellow Urine Clarity Clear Urine pH 5.5 Urine Specific [place] >=1.030 Urine Protein Negative mg/dL (NEG-TRACE) Urine Glucose (UA) Negative mg/dL (NEG) Urine Ketones (Stick) Negative mg/dL (NEG) Urine Blood Negative (NEG) Urine Nitrite Negative (NEG) Urine Bilirubin Negative (NEG) Urine Urobilinogen Dipstick 0.2 mg/dL (0.2 mg/dL) Urine Leukocyte Esterase Negative (NEG) Urine RBC 0 /HPF (0-2) Urine WBC 0 /HPF (0-4) Urine Bacteria 0 /HPF (0-FEW) Urine Mucus Mod /LPF Urine Opiates Screen Pos (NEG) Urine Methadone Screen Neg (NEG) Urine Barbiturates Neg (NEG) Urine Phencyclidine Screen Neg (NEG) Urine Amphetamine/Methamphetamine Neg (NEG) Urine Benzodiazepines Screen Neg (NEG) Urine Cocaine Screen Pos (NEG) Urine Cannabinoids Screen Neg (NEG) Urine Ethyl Alcohol Neg (NEG) Test 05/31/17 07:55 Troponin I Quantitative < 0.017 ng/mL (0.000-0.055) VTE Prophylaxis Ordered VTE Prophylaxis Devices: No VTE Pharmacological Prophylaxi: Yes Assessment/Plan Assessment/Plan 1- palpitation likely due to cocaine , TSH pending 2-chronic back pain 3-GERD and esophagitis /gastritis 4- substance abuse , long discussion about that she regrets trying cocaine again and state will refrain Dr. Francis will resume care in VICTOR HUGO FOWLER MD May 31, 2017 14:16
[2017-05-31] MEDS: PROMETHAZINE 12.5 MG in IV NORMAL SALINE 50ML 50 ML IV PRN (14:52)
--- NOTE | 2017-05-31 15:38 | CONS ---
DATE OF CONSULTATION: 05/31/2017 DATE OF SERVICE: 05/31/2017 HISTORY OF PRESENT ILLNESS: This is a 51-year-old white female who started to feel palpitations. She says it felt as though her heart was turning over. She went to the fire station. She was noted to have PVCs. They offered to take her to the Emergency Room. Instead, she went home and had her mother take her to the Emergency Room. In the Emergency Room, she was noted to have PVCs, which were symptomatic. She was thus hospitalized. I had seen her about 2 years ago when she came in with chest discomfort. She underwent myocardial perfusion imaging study, which was negative. She states that she had a bad experience with it. In fact, she states that it was cut short. However, there is a report and so she probably did complete the test. She gives no history of hypertension. She gives no history of diabetes or dyslipidemia. She has had no chest pain, no chest discomfort or heaviness. The only discomfort she has had is as though her heart is flipping over. She has severe back pain. She received epidural steroid injections and it has helped. She has other complaints of being nauseated. She received Phenergan and now she is dizzy. There is no vertigo to it. She used to do drugs, but stopped doing it about 16 years ago. She was very proud of the fact that she was drug free for all these years. However, last Thursday on 05/27/2017, her brother came in with a friend who had just come in from [place]. The brother persuaded her to take just a little bit of cocaine, which she did. She feels very badly about it and is even tearful when she talks about it. It was then she started to have the palpitations. She used to smoke about a pack of cigarettes a day until 3 years ago. She then cut it down to barely 1-2 cigarettes a day. Recently, she told that she has something in her throat and she felt a discomfort in the left side of her throat. She has been given PPIs. She is to go to the ENT physician to see whether the nodule has resolved. If not, a biopsy will be done. Once she heard about that she stopped smoking. She used to drink 10 pegs a day up until 3 years ago, but stopped that also. She is not very active because of her back pain. MEDICATIONS: Her present medications are dicyclomine 10 mg p.r.n., Nexium 40 mg twice a day, Flonase nasal spray, loratadine 10 mg a day, losartan 25 mg a day, montelukast 10 mg a day, I am not quite sure why she takes the valacyclovir. PHYSICAL EXAMINATION: GENERAL: She was in no distress. She said that she was dizzy, but is able to give a cogent history. She was tearful throughout the interview, feeling bad that she had taken the cocaine. VITAL SIGNS: The heart rate was 70 per minute and regular. Very occasional premature ventricular contraction was noted. The blood pressure was 110/60. LUNGS: Clear. HEART: The heart sounds are normal with no murmur or gallop. ABDOMEN: Soft. NECK: The carotids are palpable with no bruits. DIAGNOSTIC DATA: An EKG was normal. RADIOLOGIC IMAGING: A chest x-ray was normal. LABORATORY INVESTIGATIONS: The potassium was 4.5, sodium was 139. The cardiac enzymes are all negative. The TSH was 1.5. IMPRESSION: 1. Cocaine abuse. 2. Symptomatic PVCs since consumption of the cocaine. 3. Rule out other causes of PVCs. PLAN: We will obtain an echocardiogram to see if she has left ventricular dysfunction. She does not have significant risk factors and no chest pain. I, thus, do not believe that we need to necessarily rule out underlying coronary artery disease. She had a negative stress test 2 years ago. Her father had open heart surgery at the age of 60 years. She could be placed on beta blockers to see if that would help her symptomatic PVCs. She lists several drugs as being allergic to it or not being able to take it. I am not sure whether she will be able to tolerate the beta blockers. I certainly would not give her flecainide without a myocardial perfusion imaging study. Anxiolytics could be considered. Thank you for asking me to see her. APOLLO JARA MD DR: JOJO/marquis JOB#: [id number] / [id number]
[2017-05-31 15:50] VITALS: BP 115/71
[2017-05-31] MEDS: METOPROLOL TART IMMED RELEASE 25 MG TABLET. PO SCH (16:55)
[2017-05-31] MEDS: HYDROcodone/APAP 5/325MG 1 TAB TABLET PO PRN (16:57)
[2017-05-31] MEDS ORDERED: LOVA20TA2 PO (17:25)
[2017-05-31 19:50] VITALS: BP 104/63
[2017-05-31] MEDS: ATORVASTATIN CALCIUM 10 MG TABLET. PO SCH (20:23)
[2017-05-31] MEDS ORDERED: ZOLPIDEM 5 MG TABLET. PO PRN (21:15)
[2017-05-31 23:16] VITALS: BP 120/71
[2017-06-01] VITALS (7 sets, daily range): BP systolic 114–136; BP diastolic 69–86
[2017-06-01] MEDS: HYDROcodone/APAP 5/325MG 1 TAB TABLET PO PRN ×3 (02:35→22:41)
[2017-06-01 05:28] LABS: HEMATOCRIT 37.8 % (36.0-47.0); HEMOGLOBIN 12.2 g/dL (12.0-15.5); RED BLOOD COUNT 4.34 x10^6/uL (3.50-5.40); RED CELL DISTRIBUTION WIDTH 14.1 % (11.5-14.5); WHITE BLOOD COUNT 9.5 x10^3/uL (4.0-11.0)
[2017-06-01 06:00] LABS: ALBUMIN 3.1 g/dL (3.4-5.0); ALBUMIN/GLOBULIN RATIO 0.8 (1.0-1.7); CALCIUM 8.9 mg/dL (8.5-10.1); CREATININE 0.6 mg/dL (0.6-1.0); GFR 106.3; POTASSIUM 4.2 mmol/L (3.5-5.1); TOTAL BILIRUBIN 0.2 mg/dL (0.2-1.0); TOTAL PROTEIN 6.9 g/dL (6.4-8.2)
[2017-06-01 06:01] LABS: CHOLESTEROL/HDL RATIO 3.5
[2017-06-01] MEDS: METOPROLOL TART IMMED RELEASE 25 MG TABLET. PO SCH ×3 (07:00→08:13)
[2017-06-01] MEDS: MONTELUKAST SODIUM 10 MG TABLET. PO SCH (07:53)
[2017-06-01] MEDS: PANTOPRAZOLE 40 MG TABLET.DR. PO SCH ×2 (07:53→16:12)
[2017-06-01] MEDS: valACYclovir 500 MG TABLET. PO SCH (07:53)
[2017-06-01] MEDS: CETIRIZINE HCL 10 MG TABLET. PO SCH (07:53)
[2017-06-01] MEDS: FLUTICASONE 50MCG/NASAL SPRAY 16GM BOTTLE. NS SCH (07:55)
[2017-06-01] MEDS: KETOTIFEN FUMARATE 0.025% OPHTH SOLUTION BOTTLE. OU SCH (07:55)
[2017-06-01] MEDS ORDERED: fentaNYL PF VIAL 100 MCG/2 ML VIAL IV PRN ×2 (08:15→12:30)
--- NOTE | 2017-06-01 08:37 | DS ---
DATE OF DISCHARGE: 06/01/2017 HOSPITAL SUMMARY: The patient is a 51-year-old white female, was admitted, recovering alcoholic drug addict, who ____ cocaine a day or two prior to admission and came in with palpitations without chest pain. Chemistry profile, cardiac enzymes, lipid profile, CBC and sed rate were all within normal limits, as was her chest x-ray and ECG. Echocardiogram is pending at this time and would be done prior discharge. Vital signs have been stable, and she is comfortable to be followed as an outpatient at this point. FINAL DIAGNOSIS: Palpitations, secondary to cocaine abuse. OPERATIONS, PROCEDURES, COMPLICATIONS: None. CONSULTATIONS: Dr. Stevens. DISPOSITION: Home meds remain the same. Complete avoidance of all street drugs recommended. Follow up routinely. PROGNOSIS: Guarded. YOAN EARL MD DR: LEX/nts JOB#: [id number] / [id number]
[2017-06-01] MEDS: PROMETHAZINE 12.5 MG in IV NORMAL SALINE 50ML 50 ML IV PRN ×2 (09:45→18:06)
--- NOTE | 2017-06-01 19:55 | CARD ---
APPROVED REPORT EXAM: Two-dimensional and M-mode echocardiogram with Doppler and color Doppler. Other Information Quality : Good INDICATION Palpitations 2D DIMENSIONS RVDd2.7 (2.9-3.5cm)Left Atrium(2D)3.6 (1.6-4.0cm) IVSd0.7 (0.7-1.1cm)Aortic Root(2D)2.5 (2.0-3.7cm) LVDd6.2 (3.9-5.9cm)LVOT Diameter2.2 (1.8-2.4cm) PWd1.0 (0.7-1.1cm)LVDs4.7 (2.5-4.0cm) FS (%) 24.7 %SV94.3 ml LVEF(%)50.0 (>50%) Aortic Valve AoV Peak Aj.110.0cm/sAoV VTI23.1cm AO Peak GR.4.8mmHgLVOT Peak Aj.95.8cm/s AO Mean GR.3mmHgAVA (VMAX)3.17cm2 CORA (VTI)3.10cm2 Mitral Valve MV E Vsprdrbc27.0cm/sMV DECEL [id number] MV A Ckvwqrne42.9cm/sE/A Ratio1.6 Tricuspid Valve TR P. Yghtlxre870zy/sRAP VDFPBDAG5gbUg TR Peak Gr.80jzFuERVD10rqUk Pulmonary Vein S1 Sfkxefff99.5cm/sD2 Cvgcpjuo93.1cm/s LEFT VENTRICLE The Left Ventricle is dilated to 6.2 cms. There is normal left ventricular wall thickness. Left ventr icle systolic function is low . The Ejection Fraction is 45-50%.. There is normal LV segmental wall m otion. Transmitral Doppler flow pattern is normal for age. RIGHT VENTRICLE The right ventricle is normal size. The right ventricular systolic function is normal. ATRIA The left atrium size is normal. The right atrium size is normal. The interatrial septum is intact wit h no evidence for an atrial septal defect or patent foramen ovale as noted on 2-D or Doppler imaging. AORTIC VALVE The aortic valve is normal in structure and function. Doppler and Color Flow revealed no significant aortic regurgitation. There is no significant aortic valvular stenosis. MITRAL VALVE The mitral valve is normal in structure and function. There is no evidence of mitral valve prolapse. There is no mitral valve stenosis. Doppler and Color-flow revealed trace mitral regurgitation. TRICUSPID VALVE The tricuspid valve is normal in structure and function. Doppler and Color Flow revealed trace to mil d tricuspid regurgitation. The PA pressure was estimated at 29 mmHg. There is no tricuspid valve sten osis. PULMONIC VALVE The pulmonary valve is normal in structure and function. Doppler and Color Flow revealed no pulmonic valvular regurgitation. There is no pulmonic valvular stenosis. GREAT VESSELS The aortic root is normal in size. The ascending aorta is normal in size. The IVC is normal in size a nd collapses >50% with inspiration. PERICARDIAL EFFUSION There is no evidence of significant pericardial effusion. Critical Notification Critical Value: No <Conclusion> The Left Ventricle is dilated to 6.2 cms. There is normal left ventricular wall thickness. Left ventricle systolic function is low . The Ejection Fraction is 45-50%.. Diastolic function is normal. There is no pericardial effusion. There is no mitral stenosis and a trace mitral regurgitation. Left atrium is of a normal size. The aortic valve is tricuspid. There is no aortic stenosis or regurgitation. Right ventricle is of a normal size. There is mild tricuspid regurgitation and no pulmonary hypertension. The pulmonic valve is normal.
--- NOTE | 2017-06-01 20:09 | PDOC ---
Provider Note Provider Note She continues to be symptomatic with her PVCs. The ecardiogram surprisingly showed left ventricular dilatation and an EF of only 45-50%. No echocardiogram has been done in the past few years. MPI in July 2015 showed an EF of 60%. Discussed with the patient. She would like to have the low EF further evaluated. Plan on an MPI tomorrow. She could not tolerate even 12.5 mg of metoprolol causing her to be asymptomatic and bradycardic. If the MPI is normal and if she continues to be symptomatic flecainide would be a choice. APOLLO JARA MD Jun 01, 2017 20:09
[2017-06-01] MEDS: ATORVASTATIN CALCIUM 10 MG TABLET. PO SCH (20:40)
[2017-06-02] MEDS: PROMETHAZINE 12.5 MG in IV NORMAL SALINE 50ML 50 ML IV PRN ×2 (00:06→14:13)
[2017-06-02 07:24] VITALS: BP 134/75
[2017-06-02] MEDS: PANTOPRAZOLE 40 MG TABLET.DR. PO SCH ×3 (07:30→16:30)
--- NOTE | 2017-06-02 08:02 | PDOC ---
Provider Note Provider Note vss, no new sxs, exam and labs same- mpi ordered per dr rodriguez, home if bret- YOAN EARL MD Jun 02, 2017 08:02
[2017-06-02] MEDS: MONTELUKAST SODIUM 10 MG TABLET. PO SCH ×2 (09:00→12:53)
[2017-06-02] MEDS: FLUTICASONE 50MCG/NASAL SPRAY 16GM BOTTLE. NS SCH (09:00)
[2017-06-02] MEDS: KETOTIFEN FUMARATE 0.025% OPHTH SOLUTION BOTTLE. OU SCH (09:00)
[2017-06-02] MEDS ORDERED: REGADENOSON 0.4 MG/5 ML DISP.SYRIN. IV ONE (09:00)
[2017-06-02] MEDS: CETIRIZINE HCL 10 MG TABLET. PO SCH ×2 (09:00→12:53)
[2017-06-02] MEDS: HYDROcodone/APAP 5/325MG 1 TAB TABLET PO PRN (10:28)
[2017-06-02 11:58] VITALS: BP 146/87
[2017-06-02] MEDS ORDERED: fentaNYL PF VIAL 100 MCG/2 ML VIAL IV ONE (12:30)
[2017-06-02] MEDS: valACYclovir 500 MG TABLET. PO SCH (12:53)
[2017-06-02 15:21] VITALS: BP 115/71
--- NOTE | 2017-06-02 18:34 | RAD ---
APPROVED REPORT Test Type: Pharmacological Stress Nurse/Tech: ALLEN Vázquez Test Indications: Arrhythmia Cardiac History: See EMR, HTN, smoker-quit 1 month ago Medications: See EMR Medical History: See EMR Resting ECG: SR with PVC's Resting Heart Rate: 69 bpm Resting Blood Pressure: 139/93mmHg Pretest Chest Pain: No chest pain Nurse/Tech Notes SR w/ frequent PVC's noted, c/o nausea during exam, anxious, denied SOA Consent: The procedure was explained to the patient in lay terms. Informed consent was witnessed. Obie eout was entered into T[employer]. History and Stress Test performed by GurpreetRN Pharm. Details Pharmacologic stress testing was performed using 0.4mg per 5ml of regadenoson given intravenously ove r 7-10 seconds. Stress Symptoms No chest pain or symptoms. POST EXERCISE Reason for Termination: Infusion complete Max HR: 128 bpm Max Blood Pressure: 139/93mmHg Blood Pressure response to exercise: Normal blood pressure response during stress. Heart Rate response to exercise: Normal response Chest Pain: No. Arrhythmia: . multiple PVC's during rest period ST Change: No. INTERPRETATION Stress EKG Conclusion: No acute changes were noted. Pt denied CP/SOA, although multiple PVC's noted. Imaging Protocol IMAGE PROTOCOL: Rest Tc-99m/stress Tc-99m 1 day Rest: Stress: Viability: Radiopharm.Tc99m [id number] Sestamibi Dose10.2mCi 33.6mCi Duration 15min. 10min. Img Date 06/02/2017 06/02/2017 Inj-Img Zeha00xov. 75min. Rest Admin Site:IV - Left AntecubitalAdministrator:BRYON Workman Stress Admin Site: IV - Left AntecubitalAdministrator: Pricila Jimenez, (R)(N) STRESS DATA End Diast. Vol.114.0mlAv. Heart Rate69.0bpm End Syst. Vol.33.0mlCO Index BSA0.0L/min Myocardial Sqvq172.0gEject. Joibrktj20.0% Stress Rates Pk. Fill Rate2.46EDV/secLVtime Pk. Fill 261.73msec Pk. Empty Rate3.29ESV/secLVtime Pk. Tcypc888.51msec / Pk. Fill1.69EDV/sec Stress Scores Regional WT0.00Summed WT6.00 Regional WM0.00Summed WM0.00 LV Perf. Quant 17 Seg. SSS0.00 17 Seg. SRS0.00 17 Seg. SDS0.00 Stress Defect Extent (% LAD)0.00Rest Defect Extent (% LAD)0.00Rev. Defect Extent (% LAD)0.00 Stress Defect Extent (% LCX) 0.00Rest Defect Extent (% LCX)0.00Rev. Defect Extent (% LCX)0.00 Stress Defect Extent (% RCA)0.00Rest Defect Extent (% RCA)0.00Rev. Defect Extent (% RCA)0.00 Stress Defect Extent (% JUDSON)0.00Rest Defect Extent (% JUDSON)0.00Rev. Defect Extent (% JUDSON)0.00 Conclusion 1. Baseline electrocardiogram is normal except for PVCs. 2. The VCs were again seen during pharmacological stress but there was no ST segment depression. 3. No perfusion defects to suggest myocardial ischemia or scar. 4. Normal wall motion and wall thickening with an ejection fraction of 70%. 5. Scan indicates low risk for future cardiac events.
== END 2017-06-02 20:00 | disposition home or self-care (01) | DRG 917 ==
LOC: ER 16:37 → 6 SOUTH 19:10
PROVIDERS: ADMIT Family Medicine; ATTEND Family Medicine
DX: T40.5X1A Poisoning by cocaine, accidental (unintentional), initial encounter (principal); I50.43 Acute on chronic combined systolic (congestive) and diastolic (congestive) heart failure; F14.10 Cocaine abuse, uncomplicated; F32.9 Major depressive disorder, single episode, unspecified; R00.2 Palpitations; I49.3 Ventricular premature depolarization; K29.70 Gastritis, unspecified, without bleeding; F41.9 Anxiety disorder, unspecified; J30.9 Allergic rhinitis, unspecified; M19.90 Unspecified osteoarthritis, unspecified site; F17.210 Nicotine dependence, cigarettes, uncomplicated; G89.29 Other chronic pain; K21.0 Gastro-esophageal reflux disease with esophagitis; M54.9 Dorsalgia, unspecified; M79.7 Fibromyalgia; Z90.49 Acquired absence of other specified parts of digestive tract; Z90.710 Acquired absence of both cervix and uterus; Z88.8 Allergy status to other drugs, medicaments and biological substances; Z82.49 Family history of ischemic heart disease and other diseases of the circulatory system
CPT/HCPCS: 36415; 71010; 78452; 80048; 80053; 80061; 80076; 80307; 81001; 82553; 83690; 83735; 83880; 84443; 84484; 84703; 85025; 85027; 85610; 85651; 93005; 93017; 93306; 96374; 96375; 96376; A9500; J2550; J2785; J3010; 99285-25; G0479

== ENCOUNTER 2017-07-22 14:49 | Day surgery (SDC) | payer OTHER, MEDICAID ==
[2017-07-22] MEDS: GADOBUTROL 10 MMOL/10 ML VIAL IV (13:02)
[2017-07-22] MEDS: fentaNYL PF VIAL 100 MCG/2 ML VIAL IV ×2 (13:32→13:47)
[2017-07-22] MEDS: PROMETHAZINE 12.5 MG in IV NORMAL SALINE 50ML 50 ML IV (13:47)
[~2017-07-22 14:49] MED LIST changes: -ACYC400T PO; -AMOX500C PO; -AMOX875T PO; -BENZ100C PO; -BUDE10.2 IH; -CEPH500C PO; -CETI10TA16 PO; -DICY10CA53 PO; -ESOM20CA PO; -FLUT9.9S NS; +GADOBUTROL 10 MMOL/10 ML VIAL; +GLYCOPYRROLATE 1 MG/5 ML VIAL.; -GUAI5SYR PO; -HYDR-2758 PO; -HYDR-971 PO; +IV RINGERS,LACTATED 1000ML 1,000 ML IV; +KETAMINE HCL 500 MG/10 ML VIAL.; +LIDOCAINE 1% PF 2 ML VIAL. ID; +LIDOCAINE 2% PF Vial for OR 5 ML VIAL.; -LORA10TA68 PO; -LOVA20TA2 PO; +MIDAZOLAM HCL/PF 2 MG/2 ML VIAL.; -MONT10TA6 PO; -PHEN-318 PO; -PROM12.56 PO; +PROPOFOL 60 ML IV; -XOPENEX HFA15 GM IH; -ZOLP10TA PO; -[UNRECOGNIZED DRUG - CODE] PO; +fentaNYL PF VIAL 100 MCG/2 ML VIAL; +fentaNYL PF VIAL 100 MCG/2 ML VIAL IV
== END 2017-07-22 14:52 | disposition home or self-care (01) ==
LOC: SURG 14:49
DX: G43.909 Migraine, unspecified, not intractable, without status migrainosus (principal); E78.00 Pure hypercholesterolemia, unspecified; I10 Essential (primary) hypertension; F41.9 Anxiety disorder, unspecified; F32.9 Major depressive disorder, single episode, unspecified; F17.200 Nicotine dependence, unspecified, uncomplicated; Z87.01 Personal history of pneumonia (recurrent); Z90.49 Acquired absence of other specified parts of digestive tract; Z90.710 Acquired absence of both cervix and uterus; Z90.721 Acquired absence of ovaries, unilateral; M19.90 Unspecified osteoarthritis, unspecified site
CPT/HCPCS: 70553; A9585; J2250; J2550; J2704; J3010; J3490

== ENCOUNTER 2017-08-31 08:51 | Emergency (ER) | payer OTHER, MEDICAID ==
[2017-08-31] MEDS: DICYCLOMINE 20 MG/2 ML AMPUL. IM (09:45)
[2017-08-31] MEDS: HALOPERIDOL LACTATE 5 MG/ML VIAL. IVP (10:00)
[2017-08-31 10:09] LABS: ANION GAP 12 (6-14); BLOOD UREA NITROGEN 11 mg/dL (7-20); BUN/CREATININE RATIO 18 (6-20); CALCIUM 8.6 mg/dL (8.5-10.1); CARBON DIOXIDE 25 mmol/L (21-32); CHLORIDE 105 mmol/L (98-107); CREATININE 0.6 mg/dL (0.6-1.0); GFR 105.8; GLUCOSE 103 mg/dL (70-99); POTASSIUM 3.4 mmol/L (3.5-5.1); SODIUM 142 mmol/L (136-145)
[2017-08-31 10:14] LABS: ALBUMIN 3.5 g/dL (3.4-5.0); ALBUMIN/GLOBULIN RATIO 0.9 (1.0-1.7); ALK PHOS 88 U/L (46-116); ALT (SGPT) 40 U/L (14-59); AST (SGOT) 18 U/L (15-37); C-REACTIVE PROTEIN 5.6 mg/L (0-3.3); LIPASE 117 U/L (73-393); TOTAL BILIRUBIN 0.5 mg/dL (0.2-1.0); TOTAL PROTEIN 7.5 g/dL (6.4-8.2)
[2017-08-31 10:15] LABS: ADD MAN DIFF? NO
[2017-08-31 10:19] LABS: BASO % 1 % (0-3); EOS # 0.2 x10^3/uL (0.0-0.7); EOS % 5 % (0-3); HEMATOCRIT 42.7 % (36.0-47.0); HEMOGLOBIN 13.8 g/dL (12.0-15.5); LYMPH # 1.2 x10^3/uL (1.0-4.8); LYMPH % 34 % (24-48); MEAN CORPUSCULAR HEMOGLOBIN 28 pg (25-35); MEAN CORPUSCULAR HGB CONC 32 g/dL (31-37); MEAN CORPUSCULAR VOLUME 86 fL (79-100); MONO # 0.3 x10^3/uL (0.0-1.1); MONO % 9 % (0-9); NEUT # 1.7 x10^3uL (1.8-7.7); NEUT % 51 % (31-73); PLATELET COUNT 220 x10^3/uL (140-400); RED BLOOD COUNT 4.99 x10^6/uL (3.50-5.40); RED CELL DISTRIBUTION WIDTH 13.8 % (11.5-14.5); WHITE BLOOD COUNT 3.4 x10^3/uL (4.0-11.0)
[2017-08-31 10:43] LABS: BILIRUBIN,URINE SMALL (NEG); CLARITY,URINE CLEAR; GLUCOSE,URINE NEGATIVE (NEG); NEG OBC SER NEG; NITRITE,URINE NEGATIVE (NEG); PH,URINE 5.5; POS OBC SER POS; PREG TEST PT QUAL NEGATIVE (NEG); PROTEIN,URINE NEGATIVE (NEG-TRACE); UROBILINOGEN,URINE 0.2 mg/dL (0.2 mg/dL)
[2017-08-31 10:45] LABS: COLOR,URINE YELLOW
[2017-08-31 10:51] LABS: SQUAMOUS EPITHELIAL CELL,UR MOD /LPF
[2017-08-31 10:52] LABS: BACTERIA,URINE FEW /HPF (0-FEW)
[2017-08-31 10:53] LABS: RBC,URINE OCC /HPF (0-2)
== END 2017-08-31 12:05 | disposition home or self-care (01) ==
LOC: ER 08:51
DX: R10.13 Epigastric pain (principal); M19.90 Unspecified osteoarthritis, unspecified site; Z88.5 Allergy status to narcotic agent; Z88.6 Allergy status to analgesic agent; Z88.8 Allergy status to other drugs, medicaments and biological substances
CPT/HCPCS: 36415; 80053; 81001; 83690; 84703; 85025; 86140; 99284

== ENCOUNTER → 2018-01-12 | Outpatient (CLI) | payer OTHER, MEDICAID | END | disposition home or self-care (01) | LOC: RAD 13:00 | DX: M54.41 Lumbago with sciatica, right side (principal); M25.551 Pain in right hip; I10 Essential (primary) hypertension; E78.5 Hyperlipidemia, unspecified | CPT/HCPCS: 72100; 72220; 73501 ==

== ENCOUNTER 2018-01-28 17:00 | Emergency (ER) | payer OTHER, MEDICAID ==
[2018-01-28] MEDS: TRIAMCINOLONE ACETONIDE 0.1% TOPICAL CREAM 15GM TUBE. TP (18:03)
[2018-01-28] MEDS: ACETAMINOPHEN 500 MG TABLET PO (18:03)
[2018-01-28] MEDS: ONDANSETRON ODT 4 MG TAB.RAPDIS. PO (18:04)
== END 2018-01-28 18:08 | disposition home or self-care (01) ==
LOC: ER 17:00
DX: B34.9 Viral infection, unspecified (principal); Z88.5 Allergy status to narcotic agent; Z88.6 Allergy status to analgesic agent; Z88.8 Allergy status to other drugs, medicaments and biological substances
CPT/HCPCS: 99284; Q0162

== ENCOUNTER 2018-01-29 20:11 | Inpatient (IN) | payer OTHER, MEDICAID ==
[2018-01-29] MEDS ORDERED: fentaNYL PF VIAL 100 MCG/2 ML VIAL (21:04)
[2018-01-29] MEDS: IV NORMAL SALINE 1000ML BAG 1,000 ML IV ×2 (21:05→23:28)
[2018-01-29] MEDS: methylPREDNISolone SOD SUCC PF 125 MG/2 ML VIAL. IV (21:18)
[2018-01-29] MEDS: fentaNYL PF VIAL 100 MCG/2 ML VIAL IV ×2 (21:19→23:30)
[2018-01-29] MEDS: diphenhydrAMINE 50 MG/ML VIAL IVP (21:19)
[2018-01-29] MEDS: FAMOTIDINE 20 MG/2 ML VIAL IVP (21:20)
[2018-01-29] MEDS ORDERED: ONDANSETRON PF 4 MG/2 ML VIAL. (21:21)
[2018-01-29 21:26] LABS: BASO % 0 % (0-3); EOS % 0 % (0-3); HEMATOCRIT 38.1 % (36.0-47.0); HEMOGLOBIN 13.1 g/dL (12.0-15.5); LYMPH # 0.7 x10^3/uL (1.0-4.8); LYMPH % 9 % (24-48); MEAN CORPUSCULAR HEMOGLOBIN 29 pg (25-35); MEAN CORPUSCULAR HGB CONC 34 g/dL (31-37); MEAN CORPUSCULAR VOLUME 84 fL (79-100); MONO # 0.1 x10^3/uL (0.0-1.1); MONO % 2 % (0-9); NEUT # 6.7 x10^3uL (1.8-7.7); NEUT % 89 % (31-73); PLATELET COUNT 171 x10^3/uL (140-400); RED BLOOD COUNT 4.55 x10^6/uL (3.50-5.40); RED CELL DISTRIBUTION WIDTH 14.9 % (11.5-14.5); WHITE BLOOD COUNT 7.6 x10^3/uL (4.0-11.0)
[2018-01-29 21:29] LABS: ADD MAN DIFF? YES
[2018-01-29] MEDS ORDERED: VANCOMYCIN PER PHARMACY MC (21:30)
[2018-01-29] MEDS ORDERED: PIP/TAZO PER PHARMACY MC ×2 (21:30→22:30)
[2018-01-29 21:35] LABS: ANION GAP 18 (6-14); BLOOD UREA NITROGEN 13 mg/dL (7-20); BUN/CREATININE RATIO 19 (6-20); CARBON DIOXIDE 19 mmol/L (21-32); CHLORIDE 94 mmol/L (98-107); CREATININE 0.7 mg/dL (0.6-1.0); GFR 88.6; GLUCOSE 166 mg/dL (70-99); POTASSIUM 3.4 mmol/L (3.5-5.1); SODIUM 131 mmol/L (136-145)
[2018-01-29] MEDS: ACETAMINOPHEN 650 MG SUPP.RECT. PR (21:35)
[2018-01-29 21:36] LABS: ETHANOL < 10 mg/dL (0-10)
[2018-01-29 21:38] LABS: INR 1.1 (0.8-1.1); PROTHROMBIN TIME PATIENT 14.1 SEC (11.7-14.0)
[2018-01-29 21:41] LABS: ALBUMIN 3.3 g/dL (3.4-5.0); ALBUMIN/GLOBULIN RATIO 0.9 (1.0-1.7); ALK PHOS 88 U/L (46-116); ALT (SGPT) 69 U/L (14-59); AST (SGOT) 82 U/L (15-37); CREATINE KINASE 365 U/L (26-192); TOTAL BILIRUBIN 0.8 mg/dL (0.2-1.0); TOTAL PROTEIN 7.1 g/dL (6.4-8.2)
[2018-01-29 21:42] LABS: BILIRUBIN,URINE NEGATIVE (NEG); CLARITY,URINE CLEAR; COLOR,URINE YELLOW; GLUCOSE,URINE NEGATIVE (NEG); NITRITE,URINE NEGATIVE (NEG); PROTEIN,URINE >=300 mg/dL (NEG-TRACE); UROBILINOGEN,URINE 0.2 mg/dL (0.2 mg/dL)
[2018-01-29 21:44] LABS: LACTIC ACID 2.3 mmol/L (0.4-2.0)
[2018-01-29 21:51] LABS: AMPHETAMINE/METHAMPHETAMINE NEG (NEG); BARBITURATES NEG (NEG); BENZODIAZEPINES NEG (NEG); CANNABINOIDS NEG (NEG); COCAINE NEG (NEG); ETHANOL, URINE NEG (NEG); METHADONE NEG (NEG); OPIATES NEG (NEG); PHENCYCLIDINE NEG (NEG)
[2018-01-29 21:57] LABS: BACTERIA,URINE FEW /HPF (0-FEW); RBC,URINE OCC /HPF (0-2); SQUAMOUS EPITHELIAL CELL,UR FEW /LPF; WBC,URINE OCC /HPF (0-4)
[2018-01-29 21:58] LABS: AMORPHOUS SEDIMENT,UR PRESENT /HPF
[2018-01-29 22:14] LABS: % BANDS 54 % (0-9); % BASOS 1 % (0-3); % LYMPHS 9 % (24-48); % SEGS 36 % (35-66)
[2018-01-29 22:15] LABS: PLT ESTIMATE ADEQUATE (ADEQUATE); TOXIC VACUOLATION SLIGHT
[2018-01-29] MEDS: PIPERACILLIN/TAZOBACTAM 4.5 GM in IV NORMAL SALINE 100ML 100 ML IV (23:29)
[2018-01-30] MEDS: VANCOMYCIN 2 GM in IV DEXTROSE 5% 500 ML IV (00:35)
[2018-01-30] MEDS: VANCOMYCIN PER PHARMACY MC (01:06)
[2018-01-30] MEDS: fentaNYL PF VIAL 100 MCG/2 ML VIAL IV ×6 (01:34→11:34)
[2018-01-30] MEDS: IPRATRPIUM/ALBUTEROL 0.5/2.5MG 3 ML NEBU. NEB (02:30)
[2018-01-30 05:12] LABS: LACTIC ACID 1.1 mmol/L (0.4-2.0)
[2018-01-30] MEDS: IV NORMAL SALINE 1000ML BAG 1,000 ML IV ×2 (05:47→09:58)
[2018-01-30] MEDS: methylPREDNISolone SOD SUCC PF 125 MG/2 ML VIAL. IV (05:47)
[2018-01-30] MEDS: PIPERACILLIN/TAZOBACTAM 4.5 GM in IV NORMAL SALINE 100ML 100 ML IV (05:47)
[2018-01-30] MEDS: PANTOPRAZOLE 40 MG TABLET.DR. PO (11:00)
[2018-01-30] MEDS: DIPHTH,PERTUSS(ACELL),TET TOX 0.5 ML DISP.SYRIN. VAX IM (11:36)
[2018-01-30] MEDS ORDERED: VANCOMYCIN 1.5 GM in IV 1/2 NORMAL SALINE 500 ML IV (12:30)
[2018-01-30] MEDS ORDERED: methylPREDNISolone SOD SUCC PF 125 MG/2 ML VIAL. IV (18:00)
== END 2018-01-30 11:30 | disposition short-term general hospital (02) | DRG 595 ==
LOC: ER 20:11 → 5 NORTH 21:10
DX: L51.2 Toxic epidermal necrolysis [Lyell] (principal); R65.11 Systemic inflammatory response syndrome (SIRS) of non-infectious origin with acute organ dysfunction; E87.1 Hypo-osmolality and hyponatremia; L51.1 Stevens-Johnson syndrome; G62.9 Polyneuropathy, unspecified; M19.90 Unspecified osteoarthritis, unspecified site; Z82.49 Family history of ischemic heart disease and other diseases of the circulatory system; Z88.6 Allergy status to analgesic agent; Z88.8 Allergy status to other drugs, medicaments and biological substances; E87.6 Hypokalemia; T42.6X5A Adverse effect of other antiepileptic and sedative-hypnotic drugs, initial encounter
CPT/HCPCS: 36415; 71045; 80053; 80307; 81001; 82550; 83605; 85007; 85025; 85610; 87040; 90715; 94640; 96374; 96375; 99285; 99285-25; G0480; J1200; J2543; J2930; J3010; J3370; J7030; J7620; S0028

== ENCOUNTER 2018-10-23 13:29 | Emergency (ER) | payer OTHER, MEDICAID ==
[~2018-10-23] VITALS: Ht 162.6 cm; Wt 96.6 kg
[~2018-10-23 13:29] MED LIST changes: +ACYC400T PO; +AMOX500C PO; +AMOX875T PO; +BENZ100C PO; +BUDE10.2 IH; +CEPH500C PO; +CETI10TA16 PO; +DICY10CA3 PO; +DICY10CA53 PO; +ESOM20CA PO; +ESOM40CA PO; +ESOM40CA47 PO; +FLUT16SP NS; +FLUT9.9S NS; -GADOBUTROL 10 MMOL/10 ML VIAL; -GLYCOPYRROLATE 1 MG/5 ML VIAL.; +GUAI5SYR PO; +HYDR-2761 PO; +HYDR-3164 PO; +HYDR50TA PO; -IV RINGERS,LACTATED 1000ML 1,000 ML IV; -KETAMINE HCL 500 MG/10 ML VIAL.; -LIDOCAINE 1% PF 2 ML VIAL. ID; -LIDOCAINE 2% PF Vial for OR 5 ML VIAL.; +LORA10TA68 PO; +LOSA25TA54 PO; +LOVA10TA PO; +LOVA20TA2 PO; -MIDAZOLAM HCL/PF 2 MG/2 ML VIAL.; +MONT10TA6 PO; +MONT10TA9 PO; +OLOP2.5D5 OP; +OLOP2.5D5 OU; +PHEN-318 PO; +PROM12.58; +PROM12.58 PO; -PROPOFOL 60 ML IV; +TRIA15OI TP; +VALA500T PO; +XOPENEX HFA15 GM IH; +ZOLP10TA PO; +[UNRECOGNIZED DRUG - CODE] MM; +[UNRECOGNIZED DRUG - CODE] PO; -fentaNYL PF VIAL 100 MCG/2 ML VIAL; -fentaNYL PF VIAL 100 MCG/2 ML VIAL IV
[2018-10-23] MEDS ORDERED: diphenhydrAMINE 50 MG/ML VIAL IVP ONE (15:00)
[2018-10-23] MEDS ORDERED: PROCHLORPERAZINE 10 MG/2 ML VIAL. IV ONE (15:00)
[2018-10-23] MEDS ORDERED: fentaNYL PF VIAL 100 MCG/2 ML VIAL IV ONE (15:00)
[2018-10-23 16:40] VITALS: BP 124/62
--- NOTE | 2018-10-23 18:24 | PHYS DOC ---
Past Medical History Past Medical History: Anxiety, Arthritis, Depression, Endometriosis Additional Past Medical Histor: DOMINICK CLINTON Past Surgical History: Cholecystectomy, Hysterectomy, Tubal ligation Additional Past Surgical Histo: MULTIPLE RFA'S Additional Information: [employer] Alcohol Use: Occasionally Additional Information: HASN'T DRANK IN 9 MONTHS Drug Use: None Social History Narrative: MARIJUANA 2000 Adult General Chief Complaint Chief Complaint: MULTIPLE COMPLAINTS HPI HPI Patient is a 53 year old female was presenting with chief complaint of headache onset yesterday feels like throbbing photophobia noted nausea no vomiting has had headaches in the past but not recently no trauma no fever patient is doing with a lot of 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 She tried oxycodone at home with minimal relief was gradual in onset Review of Systems Review of Systems Constitutional: Denies fever or chills [] EyesHPI HENT: Denies nasal congestion or sore throat [] All other systems were reviewed and found to be within normal limits, except as documented in this note. Current Medications Current Medications Current Medications Medications (Trade) Dose Ordered Sig/Kurt Start Time Stop Time Status Last Admin Dose Admin Diphenhydramine HCl (Benadryl) 25 mg 1X ONCE 10/23/18 15:00 10/23/18 15:01 DC 10/23/18 15:35 25 MG Fentanyl Citrate (Fentanyl 2ml Vial) 50 mcg 1X ONCE 10/23/18 15:00 10/23/18 15:01 DC 10/23/18 15:58 50 MCG Prochlorperazine Edisylate (Compazine) 10 mg 1X ONCE 10/23/18 15:00 10/23/18 15:01 DC 10/23/18 15:30 10 MG Allergies Allergies Allergies Coded Allergies Type Severity Reaction Last Updated Verified morphine Allergy Severe Anaphylaxis 08/17/15 Yes tramadol HCl Allergy Severe Anaphylaxis 08/17/15 Yes NSAIDS (Non-Steroidal Anti-Inflamma Allergy Intermediate 10/23/18 Yes acetaminophen Allergy Intermediate 10/23/18 Yes amoxicillin Allergy Intermediate 10/23/18 Yes azithromycin Allergy Intermediate 10/23/18 Yes clavulanic acid Allergy Intermediate 10/23/18 Yes codeine Allergy Intermediate Unknown 08/17/15 Yes erythromycin base Allergy Intermediate 10/23/18 Yes gabapentin Allergy Intermediate 10/23/18 Yes hydromorphone HCl Allergy Intermediate vomit 08/17/15 Yes ketamine Allergy Intermediate 10/23/18 Yes latex Allergy Intermediate 10/23/18 Yes richmond Allergy Intermediate 10/23/18 Yes oxycodone Allergy Intermediate 10/23/18 Yes epinephrine Adverse Reaction Intermediate Unknown 08/17/15 Yes haloperidol Adverse Reaction Intermediate other 10/23/18 No lorazepam Adverse Reaction Intermediate nervousness 03/10/16 Yes metoclopramide HCl Adverse Reaction Intermediate vomit 08/17/15 Yes ondansetron HCl Adverse Reaction Intermediate Unknown 08/17/15 Yes prochlorperazine Adverse Reaction Intermediate NERVOUS 07/22/17 No Physical Exam Physical Exam Constitutional: Well developed, well nourished, no acute distress, non-toxic appearance. [] HENT: Normocephalic, atraumatic, bilateral external ears normal, oropharynx moist, no oral exudates, nose normal. [] Eyes: PERRLA, EOMI, conjunctiva normal, no discharge. [] Neck: Normal range of motion, no tenderness, supple, no stridor. [] Cardiovascular:Heart rate regular rhythm, no murmur [] Lungs & Thorax: Bilateral breath sounds clear to auscultation [] Abdomen: Bowel sounds normal, soft, no tenderness, no masses, no pulsatile masses. [] Skin: Chronic skin changes noted. Back: No tenderness, no CVA tenderness. [] Extremities: No tenderness, no cyanosis, no clubbing, ROM intact, no edema. Neurologic: Alert and oriented eyes abnormal the left eyelid is so short otherwise right eye appears fairly normal. [id number] intact strength and sensation intact throughout the neck is supple Psychologic: Affect normal, judgement normal, mood normal. [] Current Patient Data Vital Signs Vital Signs Date Time Temp Pulse Resp B/P (MAP) Pulse Ox O2 Delivery O2 Flow Rate FiO2 10/23/18 16:40 62 16 124/62 (82) 100 Room Air 10/23/18 13:39 98.2 98.2 EKG EKG [] Radiology/Procedures Radiology/Procedures [] Course & Med Decision Making Course & Med Decision Making Pertinent Labs and Imaging studies reviewed. (See chart for details) []53 YO F WITH CHIEF COMPLAINT OF HEADACHE. PATIENT IS NEURO INTACT SHE DOES HAVE A HISTORY OF REMOTE HEADACHES NO FEVER PATIENT REALLY WELL. SHE FEELS BETTER IN THE ER AFTER THE ABOVE TREATMENT DON'T THINK THAT SHE HAS SUBARACHNOID HEMORRHAGE OR MENINGITIS OR ACUTE NEUROLOGIC PATHOLOGY AT THIS TIME RETURN PRECAUTIONS WERE DISCUSSED. Dragon Disclaimer Dragon Disclaimer This electronic medical record was generated, in whole or in part, using a voice recognition dictation system. Departure Departure Impression: Primary Impression: Headache Disposition: 01 HOME, SELF-CARE Condition: STABLE Patient Instructions: Headache, FAQs RENA JEAN BAPTISTE MD Oct 23, 2018 18:24
== END 2018-10-23 16:40 | disposition home or self-care (01) ==
LOC: ER 13:29
DX: S00.211A Abrasion of right eyelid and periocular area, initial encounter (principal); R51 Headache; F17.200 Nicotine dependence, unspecified, uncomplicated; Z88.5 Allergy status to narcotic agent; Z88.1 Allergy status to other antibiotic agents; Z88.6 Allergy status to analgesic agent; Z91.040 Latex allergy status; Z88.4 Allergy status to anesthetic agent; Z88.8 Allergy status to other drugs, medicaments and biological substances; Z91.018 Allergy to other foods; X58.XXXA Exposure to other specified factors, initial encounter; Y93.89 Activity, other specified; Y92.89 Other specified places as the place of occurrence of the external cause; Y99.8 Other external cause status
CPT/HCPCS: 96374; 96375; 99284; J0780; J1200; J3010

== ENCOUNTER → 2019-02-03 | Outpatient (CLI) | payer OTHER, MEDICAID ==
--- NOTE | 2019-02-03 11:49 | RAD ---
DATE: 02/03/2019. EXAM: DIGITAL SCREEN BILAT W/CAD. HISTORY: Routine mammographic screening. COMPARISON: 10/12/2015. This study was interpreted with the benefit of Computerized Aided Detection (CAD). FINDINGS: Breast Density: SCATTERED The breast parenchyma shows scattered fibroglandular densities. Breast parenchyma level B.. There are no suspicious masses, microcalcifications or architectural distortion. Vascular calcifications are benign. The parenchymal pattern is stable. BI-RADS CATEGORY: 2 BENIGN FINDING(S). RECOMMENDED FOLLOW-UP: 12M 12 MONTH FOLLOW-UP. PQRS compliance statement: Patient information was entered into a reminder system with a target due date 02/04/2020 for the next mammogram. Mammography is a sensitive method for finding small breast cancers, but it does not detect them all and is not a substitute for careful clinical examination. A negative mammogram does not negate a clinically suspicious finding and should not result in delay in biopsying a clinically suspicious abnormality. "Our facility is accredited by the [employer] Mammography [employer]."
== END | disposition home or self-care (01) ==
LOC: MAMMO 10:25
PROVIDERS: ATTEND Family Medicine
DX: N64.89 Other specified disorders of breast (principal); Z12.31 Encounter for screening mammogram for malignant neoplasm of breast
CPT/HCPCS: 77067

== ENCOUNTER → 2020-10-25 | Outpatient (CLI) | payer OTHER, MEDICAID ==
[2019-12-23 20:15] VITALS: BP 161/82
[~2020-10-25] MED LIST changes: +ACYC-12 PO; -ACYC400T PO; +MONT10TA49 PO; -MONT10TA6 PO; -MONT10TA9 PO; -VALA500T PO; +VALA500T9 PO
== END ==
LOC: LAB 10:53
PROVIDERS: ATTEND Physician Assistant Medical
DX: Z01.812 Encounter for preprocedural laboratory examination (principal); Z20.822 Contact with and (suspected) exposure to COVID-19
CPT/HCPCS: U0003

== ENCOUNTER 2020-10-30 09:05 | Day surgery (SDC) | payer OTHER, MEDICAID ==
[~2020-10-30 09:05] MED LIST changes: -ACYC-12 PO; +ACYC400T PO; +GADOTERATE 5 MMOL/10ML VIAL. IVP ONE; +IV RINGERS,LACTATED 1000ML 1,000 ML IV SCH; +MIDAZOLAM HCL/PF 2 MG/2 ML VIAL. ONE; +fentaNYL PF VIAL 100 MCG/2 ML VIAL IVP PRN
[2020-10-30] MEDS ORDERED: fentaNYL PF VIAL 100 MCG/2 ML VIAL ONE ×2 (09:41→09:47)
[2020-10-30] MEDS ORDERED: PROPOFOL 50 ML IV ONE (09:45)
[2020-10-30 09:49] VITALS: BP 111/66
[2020-10-30] MEDS: fentaNYL PF VIAL 100 MCG/2 ML VIAL IVP PRN ×3 (09:51→10:09)
[2020-10-30] MEDS ORDERED: LIDOCAINE 2% 100 MG/5 ML SYRINGE. ONE (10:00)
--- NOTE | 2020-10-30 10:33 | RAD ---
MRI BRAIN WO+W Date: 10/30/2020 8:09 AM Indication: migraine headaches Comparison: 07/22/2019. Technique: Multiplanar multisequence MRI of the brain was performed with and without intravenous cont rast using the standard protocol. 20 cc Clariscan contrast was administered intravenously during the exam. Findings: Motion artifact degrades image quality on some sequences. No acute infarct. No acute or chronic hemorrhage. The ventricles are normal in size and configuration without hydrocephalus. No abnormal enhancement. The scalp and calvarium are normal. The pituitary and sella are normal. No Chiari malformation. The v isualized upper cervical spine is normal. Unchanged mild prominence of the optic nerve sheaths CSF signal. The visualized orbits and globes are otherwise normal. The visualized paranasal sinuses are clear. The mastoid air cells are clear. Normal flow voids within the vertebral, basilar, and internal carotid arteries indicating patency. IMPRESSION: 1. No acute infarct or hemorrhage. 2. No mass or abnormal enhancement. Electronically signed by: Bora Bergeron MD (10/30/2020 10:30 AM) [id number]
== END 2020-10-30 10:40 | disposition home or self-care (01) ==
LOC: SURG 09:05
PROVIDERS: ATTEND Physician Assistant Medical
DX: G43.001 Migraine without aura, not intractable, with status migrainosus (principal); I10 Essential (primary) hypertension; E78.00 Pure hypercholesterolemia, unspecified; M19.90 Unspecified osteoarthritis, unspecified site; F41.9 Anxiety disorder, unspecified; F32.9 Major depressive disorder, single episode, unspecified; Z90.710 Acquired absence of both cervix and uterus; Z90.49 Acquired absence of other specified parts of digestive tract; Z98.890 Other specified postprocedural states; Z79.899 Other long term (current) drug therapy; Z87.891 Personal history of nicotine dependence; Z72.89 Other problems related to lifestyle; Z88.0 Allergy status to penicillin; Z88.1 Allergy status to other antibiotic agents; Z88.2 Allergy status to sulfonamides; Z88.8 Allergy status to other drugs, medicaments and biological substances
CPT/HCPCS: 70553; J2250; J2704; J3010; J3490

== ENCOUNTER 2021-09-06 07:42 | Outpatient (CLI) | payer OTHER, MEDICAID ==
[~2021-09-06 07:42] MED LIST changes: +ACYC-12 PO; -ACYC400T PO; -GADOTERATE 5 MMOL/10ML VIAL. IVP ONE; +HYDROmorphone 2 MG/ML INJ. IVP PRN; -MIDAZOLAM HCL/PF 2 MG/2 ML VIAL. ONE; +MORPHINE SULFATE 2 MG/ML INJ. IVP PRN; +PROCHLORPERAZINE 10 MG/2 ML VIAL. IVP PRN
[2021-09-06] MEDS ORDERED: MIDAZOLAM HCL/PF 2 MG/2 ML VIAL. ONE (07:46)
[2021-09-06] MEDS ORDERED: PHENYLEPHRINE in 0.9% NACL PF 1 MG/10 ML SYRINGE. IV ONE (07:47)
[2021-09-06] MEDS ORDERED: ePHEDrine PF IN SALINE 50 MG/10 ML SYRINGE. IV ONE (07:47)
[2021-09-06] MEDS ORDERED: GLYCOPYRROLATE 1 MG/5 ML VIAL. ONE (07:47)
[2021-09-06] MEDS ORDERED: DEXMEDETOMIDINE 400 MCG in IV NORMAL SALINE 100ML 96 ML IV PRN (08:00)
[2021-09-06] MEDS ORDERED: LIDOCAINE 2% PF 5 ML VIAL. ONE (08:03)
[2021-09-06] MEDS ORDERED: KETAMINE HCL IN NACL, ISO-OSM 50 MG/5 ML SYRINGE ONE (08:03)
[2021-09-06] MEDS ORDERED: PROPOFOL 10 MG/ML (20ML) VIAL. IV ONE ×2 (08:03→10:00)
[2021-09-06] MEDS ORDERED: fentaNYL PF VIAL 100 MCG/2 ML VIAL ONE ×2 (08:29→09:23)
[2021-09-06] MEDS: fentaNYL PF VIAL 100 MCG/2 ML VIAL IVP PRN ×2 (09:31→09:47)
[2021-09-06 09:35] VITALS: BP 144/80
--- NOTE | 2021-09-06 12:22 | RAD ---
EXAMINATION: Magnetic resonance imaging (MRI) of the brain and brainstem without contrast 09/06/2021 7: 38 AM Magnetic resonance angiography (MRA) of the [place] HISTORY: Vertigo, nausea TECHNIQUE: Multiplanar multi-weighted MRI of the brain and brainstem was performed without intravenou s contrast using the general brain protocol. Noncontrast [id number] magnetic resonance angiograph y of the [place] was obtained. Maximum intensity projection images are provided. COMPARISON: MRI brain 07/22/2017. FINDINGS: The scalp and calvarium are normal. The superior sagittal sinus demonstrates normal venous flow. The corpus callosum is normal in shape and signal intensity. The posterior fossa is unremarkable. The p ituitary and sella are normal. The brainstem and craniocervical junction are unremarkable. There are T2/FLAIR signal hyperintense foci in the periventricular and subcortical white matter most suggestiv e of mild chronic small vessel ischemic changes. Diffusion weighted images reveal no hyperintensities to suggest acute cerebral infarction. The suscep tibility weighted sequences reveal no evidence of acute or chronic hemorrhage. The ventricles are nor mal in size and position without evidence of hydrocephalus. The paranasal sinuses are normal. The visualized portions of the mastoids are unremarkable. The orbi ts appear normal. Normal flow voids are demonstrated in the carotid arteries and basilar artery. Vascular findings: Intracranial segments of internal carotid arteries are normal in course and caliber. Anterior cerebra l arteries are normal in course and caliber. Middle cerebral arteries are normal in course and calibe r. There is no aneurysm, vascular malformation or high-grade stenosis/large vessel occlusion involvin g [place]. Vertebral arteries are codominant. Anterior inferior cerebellar arteries are patent. Basilar artery i s normal in course and caliber. Superior cerebellar arteries are patent. Posterior cerebral arteries are normal in course and caliber. IMPRESSION: 1. No evidence for acute or subacute ischemia. 2. There are T2/FLAIR signal hyperintense foci in the periventricular and subcortical white matter mo st suggestive of mild chronic small vessel ischemic changes. 3. There is no aneurysm, vascular malformation or high-grade stenosis/large vessel occlusion involvin g [place]. Electronically signed by: Grace Rosales MD (09/06/2021 12:20 PM) [id number]
--- NOTE | 2021-09-06 12:22 | RAD ---
EXAMINATION: Magnetic resonance imaging (MRI) of the brain and brainstem without contrast 09/06/2021 7: 38 AM Magnetic resonance angiography (MRA) of the [place] HISTORY: Vertigo, nausea TECHNIQUE: Multiplanar multi-weighted MRI of the brain and brainstem was performed without intravenou s contrast using the general brain protocol. Noncontrast [id number] magnetic resonance angiograph y of the [place] was obtained. Maximum intensity projection images are provided. COMPARISON: MRI brain 07/22/2017. FINDINGS: The scalp and calvarium are normal. The superior sagittal sinus demonstrates normal venous flow. The corpus callosum is normal in shape and signal intensity. The posterior fossa is unremarkable. The p ituitary and sella are normal. The brainstem and craniocervical junction are unremarkable. There are T2/FLAIR signal hyperintense foci in the periventricular and subcortical white matter most suggestiv e of mild chronic small vessel ischemic changes. Diffusion weighted images reveal no hyperintensities to suggest acute cerebral infarction. The suscep tibility weighted sequences reveal no evidence of acute or chronic hemorrhage. The ventricles are nor mal in size and position without evidence of hydrocephalus. The paranasal sinuses are normal. The visualized portions of the mastoids are unremarkable. The orbi ts appear normal. Normal flow voids are demonstrated in the carotid arteries and basilar artery. Vascular findings: Intracranial segments of internal carotid arteries are normal in course and caliber. Anterior cerebra l arteries are normal in course and caliber. Middle cerebral arteries are normal in course and calibe r. There is no aneurysm, vascular malformation or high-grade stenosis/large vessel occlusion involvin g [place]. Vertebral arteries are codominant. Anterior inferior cerebellar arteries are patent. Basilar artery i s normal in course and caliber. Superior cerebellar arteries are patent. Posterior cerebral arteries are normal in course and caliber. IMPRESSION: 1. No evidence for acute or subacute ischemia. 2. There are T2/FLAIR signal hyperintense foci in the periventricular and subcortical white matter mo st suggestive of mild chronic small vessel ischemic changes. 3. There is no aneurysm, vascular malformation or high-grade stenosis/large vessel occlusion involvin g [place]. Electronically signed by: Grace Rosales MD (09/06/2021 12:20 PM) [id number]
== END 2021-09-06 09:52 | disposition home or self-care (01) ==
LOC: MRI 07:42
PROVIDERS: ATTEND Internal Medicine
DX: R42 Dizziness and giddiness (principal); R11.0 Nausea; I10 Essential (primary) hypertension; E78.00 Pure hypercholesterolemia, unspecified; F41.9 Anxiety disorder, unspecified; F32.9 Major depressive disorder, single episode, unspecified; Z90.49 Acquired absence of other specified parts of digestive tract; Z90.710 Acquired absence of both cervix and uterus; Z98.890 Other specified postprocedural states; Z87.891 Personal history of nicotine dependence; Z72.89 Other problems related to lifestyle; Z88.1 Allergy status to other antibiotic agents; Z88.8 Allergy status to other drugs, medicaments and biological substances
CPT/HCPCS: 70544; 70551; J2250; J2370; J2704; J3010; J7120; A4223; J3490